=== PATIENT | female | born 1945 | race Caucasian/White ===

== ENCOUNTER 2016-05-29 10:02 | Day surgery (SDC) | payer MEDICARE ==
[~2016-05-29 10:02] MED LIST: Buffered Lidocaine 1% SYR 3ML* 3 ML/SYR SYRINGE INTRADERM ONE
[2016-05-29] MEDS ORDERED: Midazolam* 1 MG/ML 2 ML VIAL (2 MG) ONE (11:08)
[2016-05-29] MEDS ORDERED: Famotidine IV* 10 MG/ML 2 ML (20 mg) ONE (11:08)
[2016-05-29] MEDS ORDERED: fentaNYL* 50 MCG/ML 2 ML VIAL (100 MCG VIAL) ONE ×2 (11:08→12:42)
[2016-05-29] MEDS ORDERED: Dexamethasone IV* 4 MG/ML 1 ML (4 MG) ONE (12:05)
[2016-05-29] MEDS ORDERED: Lidocaine 2% PF * 5 ML VIAL ONE (12:05)
[2016-05-29] MEDS ORDERED: Propofol* 10 MG/ML 20 ML BTL IV PUSH ONE (12:05)
[2016-05-29] MEDS ORDERED: Succinylcholine* 20 MG/ML 10 ML VIAL ONE (12:05)
[2016-05-29] MEDS ORDERED: Ondansetron INJ* 2 MG/ML VIAL ONE (12:05)
[2016-05-29] MEDS ORDERED: Rocuronium* 10 MG/ML VIAL ONE (12:42)
[2016-05-29] MEDS ORDERED: PROCHLORPERAZINE INJ 5 MG/ML 2 ML VIAL IV PRN (14:11)
[2016-05-29] MEDS ORDERED: Ondansetron INJ* 2 MG/ML VIAL IV PRN (14:11)
[2016-05-29] MEDS ORDERED: Acetaminophen TAB* 325 MG PO PRN (14:11)
[2016-05-29 14:30] VITALS: BP 138/63
--- NOTE | 2016-05-30 03:39 | PRO ---
BRONCHOSCOPY REPORT: DATE OF PROCEDURE: 05/29/16 PROCEDURE: Bronchoscopy with endobronchial ultrasound-guided fine needle aspiration of mediastinal and hilar nodes, bronchoalveolar lavage from left upper lobe, endobronchial needle aspiration and endobronchial biopsy from lingular segment of left upper lobe. ANESTHESIA: General anesthesia. The patient intubated with size 8.0 ET tube. ANESTHESIOLOGIST: Dr. Horton. DESCRIPTION OF PROCEDURE: Informed consent was obtained from the patient prior to the procedure after all the risks and benefits were thoroughly explained. The patient was intubated with size 8.0 ET tube. Appropriate time-out was agreed on by attending staff. Flexible bronchoscope was inserted through the ET tube. The ET tube positioning was noted to be 3 cm above the level of dora. Bronchoscope was then inserted to right bronchial tree, which was inspected. No endobronchial lesions were noted. Thick secretions were noted and were suctioned out. Bronchoscope was then inserted into the left bronchial tree, which was then inspected. Thick secretions were noted and were suctioned. The patient noted to have endobronchial lesion in the lingular segment of left upper lobe. There was near complete occlusion of lateral segment of lingular bronchus. Old blood was noted in the area. Bronchoscope was then withdrawn and EBUS bronchoscope was inserted. Station 7 lymph node was scanned and was accessed with three passes. Rapid onsite evaluation revealed normal lymphatic tissue, no malignant cells were seen. Station R4 was accessed with two passes. Normal lymphatic tissue was seen without malignant cells. Station L4 was accessed with three passes. Normal lymphatic tissue was seen with no malignant cells. Station L10 was accessed with four passes. Normal lymphatic tissue was seen. No malignant cells were seen. Rest of the specimen was placed in CytoLyt. Specimen was also placed in RPMI for flow cytometric evaluation. Olympus bronchoscope was then withdrawn and flexible bronchoscope was inserted. Endobronchial needle aspirations were performed in lingular segment of left upper lobe bronchus, smeared on a slide, which revealed malignant cells and necrotic tissue. Rest of the specimen was placed in CytoLyt. Endobronchial biopsies were also obtained from left upper lobe endobronchial lesion. The patient tolerated the procedure well. Minimal bleeding was noted. The patient was extubated and was seen in recovery in optimal condition. Will follow up final results. [id number] #: [id number] [facility]
== END 2016-05-29 15:10 | disposition home or self-care (01) ==
LOC: OR 10:02
PROVIDERS: ATTEND Internal Medicine
DX: C34.12 Malignant neoplasm of upper lobe, left bronchus or lung (principal); F17.210 Nicotine dependence, cigarettes, uncomplicated; J44.9 Chronic obstructive pulmonary disease, unspecified
CPT/HCPCS: 87015; 87070; 87102; 87116; 87205; 87206; 88112; 88172; 88173; 88184; 88185; 88188; 88305; 88341; 88342; J0330; J1100; J2250; J2405; J2704; J3010

== ENCOUNTER 2016-06-27 22:33 | Day surgery (SDC) | payer MEDICARE ==
[2016-06-27] MEDS ORDERED: Ondansetron INJ* 2 MG/ML VIAL IV ONE (22:51)
[2016-06-27] MEDS ORDERED: NS 0.9% 1000 ML* 1,000 ML IV ONE (22:51)
[2016-06-27 23:43] LABS: Hematocrit 39 % (35-47); Hemoglobin 12.4 g/dl (12.0-16.0); Mean Corpuscular HGB Conc 32 g/dl (31-36); Mean Corpuscular Hemoglobin 25 pg (27-31); Mean Corpuscular Volume 78 fL (80-97); Mean Platelet Volume 8 um3 (7.4-10.4); Red Blood Count 5.04 10^6/ul (4.0-5.4); Red Cell Distribution Width 15 % (10.5-15)
--- NOTE | 2016-06-27 23:51 | ED ---
Giorgio Álvarez Erika, scribed for Sukhi Delong MD on 06/27/16 at 2254 . Abdominal Pain/Female - HPI Summary HPI Summary: Patient is a 71-year-old female presenting to the ED with a CC of abdominal pain. She reports that she quit smoking 7 days ago, and is having surgery for a lung tumor removal on 07/02/[address] Carvalho. Patient states she has had decreased appetite the past 3 weeks. Today, pt reports she felt constipated, though states she had a BM today. At 18:00 pt took Sen[place]ot. At 19:30, patient developed abdominal pain, associated with diaphoresis, chills, dizziness, and nausea. Patient has had 2 episodes of vomiting, mostly consisting of dry- heaving. - History of Current Complaint Chief Complaint: EDAbdPain Stated Complaint: ABD PAIN/FEVER Time Seen by Provider: 06/27/16 22:44 Hx Obtained From: Patient, Family/Bottle Tester - Daughter Onset/Duration: Gradual Onset, Lasting Hours, Worse Since - 19:30 Timing: Constant Severity Currently: Moderate Pain Intensity: 9 Pain Scale Used: 0-10 Numeric Alleviating Factor(s): Nothing Associated Signs and Symptoms: Positive: Diaphoresis, Decreased Appetite, Nausea , Vomiting, Other: - Chills, dizziness Allergies/Adverse Reactions: Allergies Allergy/AdvReac Type Severity Reaction Status Date / Time No Known Allergies Allergy Verified 06/27/16 22:38 PMH/Surg Hx/FS Hx/Imm Hx Endocrine/Hematology History: Denies: Hx Diabetes Cardiovascular History: Denies: Hx Hypertension Respiratory History: Reports: Other Respiratory Problems/Disorders - chronic sinus problem Sensory History: Reports: Hx Contacts or Glasses - glasses Denies: Hx Hearing Aid Opthamlomology History: Reports: Hx Contacts or Glasses - glasses Psychiatric History: Reports: Hx Anxiety - on meds - Cancer History Cancer Type, Location and Year: lung - Surgical History Surgery Procedure, Year, and Place: x1 1964. appendectomy 1964 Hx Anesthesia Reactions: No - Immunization History Date of Tetanus Vaccine: unknown Date of Influenza Vaccine: unknown Infectious Disease History: No Infectious Disease History: Denies: Traveled Outside the [place] in Last 30 Days - Family History Known Family History: Positive: Other - Lung CA - Social History Alcohol Use: None Hx Substance Use: No Substance Use Type: Reports: None Hx Tobacco Use: Yes Smoking Status (MU): Light Every Day Tobacco Smoker Review of Systems Positive: Chills, Skin Diaphoresis Gastrointestinal: Other - decreased appetite, constipation Positive: Abdominal Pain, Vomiting, Nausea Neurological: Other - dizziness All Other Systems Reviewed And Are Negative: Yes Physical Exam Triage Information Reviewed: Yes Vital Signs On Initial Exam: Initial Vitals Temp Pulse Resp BP Pulse Ox 96.9 F 61 18 143/48 100 06/27/16 22:36 06/27/16 22:36 06/27/16 22:36 06/27/16 22:36 06/27/16 22:36 Vital Signs Reviewed: Yes Appearance: Positive: Well-Appearing, Pain Distress - mild discomfort Skin: Positive: Warm Head/Face: Positive: Normal Head/Face Inspection Eyes: Positive: AGGIE ENT: Positive: Hearing grossly normal Neck: Positive: Supple Respiratory/Lung Sounds: Positive: Clear to Auscultation, Breath Sounds Present Cardiovascular: Positive: RRR Abdomen Description: Positive: Soft, Other: - mild diffuse abd tenderness. Negative: Guarding Bowel Sounds: Positive: Present Musculoskeletal: Positive: Strength/ROM Intact Neurological: Positive: Sensory/Motor Intact Psychiatric: Positive: Affect/Mood Appropriate Diagnostics - Vital Signs Vital Signs Temp Pulse Resp BP Pulse Ox 06/27/16 22:36 96.9 F 61 18 143/48 100 - Laboratory Lab Results: Lab Results 06/27/16 Range/Units 23:20 WBC 16.0 H (3.5-10.8) 10^3/ul RBC 5.04 (4.0-5.4) 10^6/ul Hgb 12.4 (12.0-16.0) g/dl Hct 39 (35-47) % MCV 78 L (80-97) fL MCH 25 L (27-31) pg MCHC 32 (31-36) g/dl RDW 15 (10.5-15) % Plt Count 396 (150-450) 10^3/ul MPV 8 (7.4-10.4) um3 Neut % (Auto) 87.9 H (38-83) % Lymph % (Auto) 7.1 L (25-47) % [place] % (Auto) 4.2 (1-9) % Eos % (Auto) 0.1 (0-6) % Baso % (Auto) 0.7 (0-2) % Absolute Neuts (auto) 14.1 H (1.5-7.7) 10^3/ul Absolute Lymphs (auto) 1.1 (1.0-4.8) 10^3/ul Absolute Monos (auto) 0.7 (0-0.8) 10^3/ul Absolute Eos (auto) 0 (0-0.6) 10^3/ul Absolute Basos (auto) 0.1 (0-0.2) 10^3/ul Absolute Nucleated RBC 0.01 10^3/ul Nucleated RBC % 0 Result Diagrams: 06/27/16 23:20 06/27/16 23:20 Lab Statement: Any lab studies that have been ordered have been reviewed, and results considered in the medical decision making process. - Radiology CXR Radiology Interpretation Completed By: ED Physician - Mass left mid lung field - CT CT A/P W/ CT Interpretation Completed By: Radiologist - Imaging last ironer - Moderate right hydronephrosis and perinephric inflammation with a 5 mm distal ureteral density , possibly a stone, although blood clot or R mass also considered. Sigmoid diverticulosis. - Ultrasound No standard instances Ultrasound Interpretation Completed By: Radiologist - US Renal - Mild/moderate right hydronephrosis secondary to a 9 mm distal UVJ stone Re-Evaluation - Re-Evaluation First Eval Re-Evaluation Time: 06:23 Comment: Updated patient on all results and plan of care Second Eval Comment: d/w dr steward, d/w dr you Abdominal Pain Fem Course/Dx - Course Course Of Treatment: A 71 y/o F presents to the ED with a CC of abdominal pain. Associated symptoms include diaphoresis, chills, dizziness, and nausea. Renal US shows mild/moderate right hydronephrosis secondary to a [address] stone[address] Steward consulted, who recommends admission to the hospitalist. Dr. Steward will stent patient. Patient admitted to Dr. You. - Diagnoses Provider Diagnoses: Hydronephrosis determined by ultrasound - Provider Notifications Discussed Care Of Patient With: Dr. Steward (urologist) at 04:59 - recommends ultrasound. Dr. Steward at 06:23 - recommends admission. will stent. Dr. You (hospitalist) at 06:29 - agrees to admit Instructed by Provider To: Admit As Inpatient - Critical Care Time Critical Care Time: 30-74 min Discharge - Discharge Plan Condition: Stable Disposition: ADMITTED TO [facility] Referrals: Dre Sahu MD [Primary Care Provider] - The documentation as recorded by the Giorgio simpson Erika accurately reflects the service I personally performed and the decisions made by me, Sukhi Delong MD.
[2016-06-27 23:54] LABS: Albumin 3.6 g/dL (3.2-5.2); BUN/Creatinine Ratio 21.1 (8-20); C Reactive Protein 66.57 mg/L (< 5.00); Calcium 9.4 mg/dL (8.6-10.3); EGFR African American 95.9 (>60); EGFR Non-African American 74.6 (>60); Globulin 3.1 g/dL (2-4); Potassium 3.8 mmol/L (3.5-5.0); Total Bilirubin 0.4 mg/dL (0.2-1.0); Total Protein 6.7 g/dL (6.4-8.9)
[2016-06-27] MEDS ORDERED: Morphine INJ* 2 MG/ML 1 ML SYRINGE IV ONE (23:54)
[2016-06-28] MEDS ORDERED: Iohexol 300* (CONTRAST) 10 ML SDV IV ONE (01:02)
[2016-06-28] MEDS ORDERED: Morphine INJ* 2 MG/ML 1 ML SYRINGE IV ONE (04:51)
[2016-06-28] MEDS ORDERED: Morphine INJ* 2 MG/ML 1 ML SYRINGE ONE (04:52)
[2016-06-28 05:34] LABS: Urine Bacteria Absent (Absent); Urine Bilirubin Negative (Negative); Urine Glucose Negative (Negative); Urine Nitrite Negative (Negative)
[2016-06-28] MEDS ORDERED: cefTRIAXone(*) 2 GM ADDV.VIAL IVPB ONE (06:37)
[2016-06-28] MEDS ORDERED: NS 0.9% 1000 ML* 1,000 ML IV SCH (08:15)
--- NOTE | 2016-06-28 08:15 | RAD ---
INDICATION: Abdominal pain, history of lung cancer. COMPARISON: Comparison is made with a prior PET/CT study from June 05, 2016. TECHNIQUE: A CT scan of the abdomen and pelvis was performed with intravenous and oral contrast following intravenous injection of 91 ml of Omnipaque 300 nonionic contrast. Contiguous axial sections were obtained from the lung bases through the symphysis pubis. Images were reconstructed in the coronal and sagittal planes. FINDINGS: The lung bases are clear. No pleural effusion is present. The liver and spleen are within normal limits in size without significant focal abnormality. No calcified gallstones are seen. The pancreas appears to be within normal limits in size. The adrenal glands appear to be within normal limits. The left kidney appears normal. There is enlargement of the right kidney with perinephric stranding. There is dilatation of the right renal calyces pelvis and ureter to the level of the bladder. In that region there is a hyperdense area measuring 6 x 5 mm in size possibly representing a noncalcified calculus, mass or clot. The urinary bladder otherwise appears unremarkable. No renal calculi are seen. The aorta is normal in caliber with moderate calcific plaque present. No significant enlarged retroperitoneal lymph nodes are seen. The stomach, small and large bowel appear nondistended. There is a large duodenal diverticulum measuring 4.3 x 3.2 cm in size. The patient is status post appendectomy by history. There is mild sigmoid diverticulosis and mild thickening of the wall of the sigmoid colon which is unchanged from the prior PET/CT study. The uterus is anteverted and normal in size. No free intraperitoneal air or fluid is seen. No significant focal osseous abnormality is seen. IMPRESSION: MODERATE RIGHT HYDRONEPHROSIS SECONDARY TO A 6 MM DISTAL URETERAL DENSITY, DIFFERENTIAL DIAGNOSIS WOULD INCLUDE A CALCULUS, BLOOD CLOT OR MASS.
--- NOTE | 2016-06-28 08:17 | RAD ---
INDICATION: Shortness of breath, history of lung carcinoma. COMPARISON: Comparison is made with a prior chest x-ray study from [facility] 2016. TECHNIQUE: Dual-energy PA and lateral views of the chest were obtained. FINDINGS: The heart is within normal limits in size. Mediastinal and hilar contours appear within normal limits. There is a large mass present in the left upper lobe measuring 7.0 x 8.0 cm in size. This has increased in size in previously measured 6.7 x 5.6 cm in size. The lungs are hyperinflated and otherwise clear. No pleural effusion is seen. IMPRESSION: LARGE LEFT UPPER LOBE MASS, INCREASED IN SIZE.
[2016-06-28] MEDS ORDERED: ALPRAZolam TAB* 0.25 MG PO PRN (08:31)
[2016-06-28] MEDS ORDERED: Morphine INJ* 2 MG/ML 1 ML SYRINGE IV PRN (08:33)
[2016-06-28] MEDS ORDERED: LORazepam INJ* 2 MG/ML 1 ML VIAL IV PUSH PRN (08:33)
[2016-06-28] MEDS ORDERED: Ondansetron INJ* 2 MG/ML VIAL IV PRN (08:35)
--- NOTE | 2016-06-28 08:36 | RAD ---
INDICATION: Right renal colic. COMPARISON: Comparison is made with a prior CT of the abdomen and pelvis from June 28, 2016. TECHNIQUE: Multiple real-time images of the right kidney were obtained. FINDINGS: The right kidney is slightly enlarged measuring 11.4 x 6.3 x 5.6 cm. There is a small amount of fluid present adjacent to the kidney in the perinephric space. There is moderate distention of the renal calyces and pelvis. There is a focal area of increased echogenicity present at the right ureterovesical junction measuring 9 x 4 mm in size most suspicious for ureteral calculus. There is a diminished right ureteral vesicle jet. The left ureteral vesicle jet appears to be within normal limits. IMPRESSION: MODERATE RIGHT HYDRONEPHROSIS SECONDARY TO OBSTRUCTION AT THE RIGHT URETEROVESICAL JUNCTION. AT THAT LOCATION THERE IS A FOCAL AREA OF INCREASED ECHOGENICITY. THE IMAGING CHARACTERISTICS WOULD FAVOR A CALCULUS OVER A CLOT OR MASS NOTED ON THE PRIOR CT STUDY.
[2016-06-28] MEDS ORDERED: Iohexol 180 (CONTRAST) 10 ML SDV IV ONE (09:22)
[2016-06-28] MEDS ORDERED: fentaNYL* 50 MCG/ML 2 ML VIAL (100 MCG VIAL) ONE (10:24)
[2016-06-28] MEDS ORDERED: Lidocaine 2% PF* 5 ML VIAL ONE (10:24)
[2016-06-28] MEDS ORDERED: Propofol* 10 MG/ML 20 ML BTL IV PUSH ONE (10:24)
[2016-06-28] MEDS ORDERED: EPHEDrine (Pressors)* 50 MG/ML VIAL ONE (10:44)
--- NOTE | 2016-06-28 11:22 | HP ---
HISTORY AND PHYSICAL: DATE OF ADMISSION: 06/28/16 PROVIDER: Jayson Osborne NP ATTENDING PHYSICIAN: Dr. Stanford *(report dictated by Jayson Osborne NP) PRIMARY CARE PROVIDER: Dr. Sahu. GENERAL SURGEON: Following for left upper lobe cancer, Dr. Carvalho. DONOR PROCESSOR: Dr. Ramirez. ONCOLOGIST: Dr. Padilla. CHIEF COMPLAINT: Abdominal pain, nausea, vomiting, chills. HISTORY OF PRESENT ILLNESS: Ms. Lauren is a 71-year-old female with a past medical history of long-term tobacco abuse, anxiety, and recent diagnosis of left upper lobe adenocarcinoma who presented to emergency department last evening for complaint of abdominal pain with nausea, vomiting, and chills starting last evening, found to have a 9 mm distal UVJ stone. Ms. Lauren reports that she quit smoking approximately 1 week ago and has intermittently felt like she was constipated over the past week, but having daily bowel movements. She reports last evening around 6 p.m., she took a senna. At approximately 7:30, she developed lower abdominal pain that she reports as sharp and cramping. She then developed nausea, vomiting, chills, and diaphoresis. Reported she vomited 4 times, accompanied with the abdominal pain. She called her daughter who brought her to the emergency department for further evaluation. On evaluation in the emergency department, the patient was found to have a CRP of 66, leukocytosis of 16. She currently denies any further abdominal pain, nausea, or vomiting since last evening. The patient denies dysuria or urgency, but reports increased frequency in the emergency department. Ms. Lauren reports that she has a scheduled left thoracotomy with left upper lobe lobectomy on , 07/02/[address] Carvalho. PAST MEDICAL HISTORY: 1. Anxiety. 2. Depression. 3. Recent diagnosis of left upper lobe adenocarcinoma. 4. Long-term history of tobacco abuse, 50+ years, recently quitting 1 week ago. HOME MEDICATIONS: 1. Citalopram 20 mg p.o. daily. 2. Xanax 0.25 mg p.o. t.i.d. p.r.n. anxiety. The patient reports she rarely takes this. ALLERGIES: No known allergies. FAMILY HISTORY: Sister has a history of lung cancer who of this disease. SOCIAL HISTORY: The patient reports 50+ years of smoking history, smoking half a pack of cigarettes a day. Denies alcohol use. 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 His number is . REVIEW OF SYSTEMS: A 14-point review of systems was performed. All the pertinent positives and negatives are mentioned in the history of present illness. All the remaining systems are negative. PHYSICAL EXAMINATION GENERAL APPEARANCE: Alert and oriented, a 71-year-old female, sitting up on the emergency department stretcher, in no acute distress, good historian. VITAL SIGNS: Temperature 96.9, heart rate 68, respirations 18, O2 sat 94% on room air, blood pressure 130/73. HEENT: Head is normocephalic, atraumatic. Pupils are equal and reactive to light. Oropharynx is clear. Dry mucous membranes. NECK: Supple. No cervical or supraclavicular lymphadenopathy. CARDIAC: S1, S2. Regular rate and rhythm. No murmurs, rubs, or gallops appreciated. No lower extremity edema. RESPIRATORY: Lungs are clear to auscultation bilaterally. Good aeration throughout. No rhonchi, wheezes, rales noted. ABDOMEN: Soft, nondistended, mild tenderness to right lower quad. No guarding. Normal bowel sounds x4. Mild right CVA tenderness. EXTREMITIES: Full range of motion in all extremities. Strength is 5/5 throughout. No edema or cyanosis noted. NEUROLOGICAL: Grossly intact. PSYCH: Alert and oriented x3. Appropriate to situation. No anxiety noted. LABORATORY DATA AND DIAGNOSTIC STUDIES: WBC 16.0, RBC 5.04, HGB 12.4, HCT 39, MCV 78, MCH 25, MCHC 32, RDW 15, platelet count 396. Sodium 134, potassium 3.8 , chloride 101, carbon dioxide 23, anion gap 10, BUN 16, creatinine 0.76, glucose 154. Lactic acid 1.5. Calcium 9.4, magnesium 2.0, total bilirubin 0.40 , AST 8, ALT 5, alkaline phosphatase 105. C-reactive protein 66.54. Total protein 6.7, albumin 3.6. Lipase 24. Urinalysis; specific gravity 1.048, 1+ blood, rbc 3+. Abdomen and pelvis CT, impression: Moderate right hydronephrosis secondary to a 6 mm distal ureteral density, differential diagnosis would include calculus, blood clot, or mass. Renal ultrasound; mild/moderate right hydronephrosis secondary to a 9 mm distal UVJ stone. ASSESSMENT AND PLAN: Ms. Lauren is a 71-year-old female with a past medical history of long-term history of tobacco abuse, recently diagnosed with a left upper lobe adenocarcinoma and history of anxiety/depression who presents to the emergency department last evening for acute onset of lower abdominal pain, nausea, vomiting, chills, diaphoresis, found to have a right hydronephrosis, looks likely secondary to a distal UVJ stone 9 mm per ultrasound. 1. Abdominal pain. Plan is to admit this patient and urologist, Dr. Steward will take the patient to the OR for a stent placement. The patient was given 1 dose of ceftriaxone in the emergency department. Currently, she is having no pain and feels much better. It is possible the patient could go home this afternoon or in the morning. Disposition per urologist. 2. Anxiety/depression. Continue Celexa and Xanax p.r.n. 3. Recent diagnosis of left upper lobe adenocarcinoma. Plan is for the patient to have a scheduled left thoracotomy and left upper lobe lobectomy with Dr. Carvalho on 07/02/16. The patient was instructed to contact Dr. Carvalho to make him aware of this hospitalization as well as records will copied to him. 4. DVT prophylaxis. SCDs. Encourage ambulation. I will start heparin subcu if the patient remains overnight. 5. Code status, full code. The patient's is the healthcare proxy. TIME SPENT: Approximately 60 minutes were spent on this admission. JAYSON OSBORNE NP CC: Dr. Sauh; Dr. Carvalho* [id number]/[facility] #: [id number] DI[facility]
--- NOTE | 2016-06-28 11:32 | RAD ---
INDICATION: Right hydronephrosis, stent placement. COMPARISON: Comparison is made with a prior CT of the abdomen and pelvis and renal ultrasound obtained earlier today. TECHNIQUE: 7 seconds of intermittent fluoroscopic guidance were provided and 7 spot films of the abdomen were centered on the right side. FINDINGS: There is partial opacification of the right renal collecting system. There is dilatation of the ureter renal pelvis and calyces consistent with hydronephrosis. Subsequently there is placement of a double-J stent catheter on the right side which demonstrates normal course. IMPRESSION: INTRAOPERATIVE CONTROL FILMS. CPT II Codes: 6045F
[2016-06-28] MEDS ORDERED: Solifenacin(NF) 5 MG TAB PO ONE (12:00)
[2016-06-28 12:17] VITALS: BP 124/54
--- NOTE | 2016-06-28 12:22 | CONS ---
UROLOGY CONSULTATION: DATE OF CONSULT: 06/28/16 AGE: 71 years, female. REQUESTING PHYSICIAN: Dr. Sukhi Delong. DIAGNOSIS: Right hydronephrosis. SECONDARY DIAGNOSIS: Probable calculus right distal ureter. PLANNED PROCEDURE: Right ureteroscopy, possible laser and stent insertion. HISTORY OF PRESENT ILLNESS: Pebbles Lauren is a 71-year-old lady who presented to the emergency room with abdominal pain, nausea and vomiting. The pain is predominantly on the right side and her initial presentation was not typical of ureteral colic. So, a CAT scan was done with oral and intravenous contrast. This revealed moderate right hydronephrosis and hydroureter with a possible calculus in the right distal ureter close to the bladder. Ultrasound was then obtained later on which revealed persistent obstruction on the right side with what is being described as a likely 9 mm calculus of the right ureterovesical junction (the CT scan was indeterminate because it was done with intravenous contrast which can often obscure a calculus). PAST MEDICAL HISTORY: Significant for: 1. Recently diagnosed left lung cancer for which she is scheduled for surgical resection in the next week. 2. Anxiety, depression. MEDICATIONS ON ADMISSION: 1. Citalopram 20 mg daily. 2. Xanax p.r.n. ALLERGIES: No known drug allergies. REVIEW OF SYSTEMS: She is otherwise in good health. She denies any chest pain or shortness of breath. There is no history of diabetes mellitus or any other major systemic illness. PHYSICAL EXAM: Reveals a pleasant, anxious, elderly lady who is in mild-to- moderate discomfort. Blood pressure is 143/52, pulse 68 per minute, temperature 96.9, oxygen saturation 100%. Cardiovascular Exam: Regular rate and rhythm. S1, S2. Lungs are clear bilaterally. Abdomen is soft with mild right flank and right lower quadrant tenderness. DIAGNOSTIC STUDIES/LAB DATA: Review of labs reveals a white count of 16.0. Hemoglobin and hematocrit are normal at 12.4 and 39. BUN and creatinine are normal at 16 and 0.76. Urinalysis shows 1+ blood with absent bacteria. ASSESSMENT/PLAN: I reviewed the CT and ultrasound and had a detailed discussion with Mrs. Lauren. I also explained to her that there is a small possibility that this is a noncalculus etiology for her pain and hydronephrosis and in any case because of the ongoing pain and hydronephrosis, the plan is to proceed with right ureteroscopy. If this is the calculus, then the next step would be a laser lithotripsy and stone removal and stent insertion. I discussed the procedure in detail with Mrs. Lauren. CC: Dr. Dre Sahu; Dr. Sukhi Carvalho; Dr. Ramirez; eD Steward MD * [id number]/[facility] #: [id number] MTDD
--- NOTE | 2016-06-29 07:33 | OP ---
DATE OF OPERATION: 06/28/16 - [facility] DATE OF : [birth year] - AGE: 71 years, female. SURGEON: De Steward MD ANESTHESIOLOGIST: Dr. Taran Donald. ANESTHESIA: General. PRE-OP DIAGNOSES: 1. Right hydronephrosis. 2. Calculus, right distal ureter. POST-OP DIAGNOSES: 1. Right hydronephrosis. 2. Calculus, right distal ureter. OPERATIVE PROCEDURE: Cystoscopy, right retrograde pyelogram, right ureteroscopy and stone extraction, and right stent insertion. COMPLICATIONS: None. STENT USED: 6-Swedish stent, right ureter. INDICATIONS: Pebbles Lauren is a 71-year-old lady who was evaluated for right- sided abdominal pain, nausea and vomiting, and noted to have an obstructing calculus in the right distal ureter. OPERATIVE FINDINGS: Calculus, right distal ureter causing right hydronephrosis and hydroureter. POSTOPERATIVE CONDITION: Stable. DESCRIPTION OF PROCEDURE: After induction of general anesthesia, the patient was placed in dorsal lithotomy position. Sequential compression devices were in place and functioning. Initial cystoscopy revealed a normal-appearing bladder with some mild edema and inflammation surrounding the right orifice. A guidewire was introduced and retrograde pyelogram performed on the right side. This revealed hydronephrosis with proximal hydroureter and there was still some of the contrast from the previous CT scan present. A 6-Swedish semirigid ureteroscope was introduced and advanced under direct vision. In the distal ureter just above the ureterovesical junction, there was a long thin, about 9 x 4 to 5 mm calculus with some surrounding edema and inflammation. This was engaged using a 3-pronged grasper and removed. It had the visual appearance of a calculus, but . The ureteroscope was advanced into the proximal ureter to make sure there were no additional calculi and none were noted. On initial cystoscopy, I had noted a mild- to-moderate degree of urethral stenosis and a Rashid catheter was placed for temporary bladder drainage. The patient tolerated the procedure satisfactorily and after successful placement of a 6- Swedish stent under fluoroscopic monitoring, was transferred back to recovery area in stable condition. CC: Dr. Dre Sahu; Dr. Sukhi Carvalho; Dr. Ramirez; Dr. De Steward.* [id number]/[facility] #: [id number] MTDD
--- NOTE | 2016-06-29 08:32 | DS ---
DISCHARGE SUMMARY: DATE OF ADMISSION: 06/28/16 DATE OF DISCHARGE: 06/28/16 PROVIDER: Jayson Osborne NP ATTENDING PHYSICIAN: Dr. Stanford *(as dictated by Jayson Osborne NP) PRIMARY CARE PROVIDER: Dr. Dre Sahu WIND TURBINE BLADE REPAIR TECHNICIAN: Dr. Ramirez. ONCOLOGIST: Dr. Padilla. GENERAL SURGEON: Following for left upper lobe carcinoma, Dr. Carvalho. CONSULTING UROLOGIST: Dr. Steward. DISCHARGE DIAGNOSIS: Moderate right hydronephrosis secondary to obstruction at the UVJ with a 9 mm stone, now status post ureteral stent placement. HISTORY OF PRESENT ILLNESS AND HOSPITAL COURSE: Please see history and physical by this author for full admission details, but in summary, this is a 71 -year-old female who presented to the emergency department last evening with complaint of acute onset of abdominal pain, nausea, vomiting, and chills, who came to the emergency department, found to have a 9 mm distal UVJ stone causing obstruction and moderate right hydronephrosis. She was taken to the OR by urologist, Dr. Steward, today in which a ureteral stent was placed. The patient received IV ceftriaxone and gentamicin per Urology. The patient's urinalysis did not appear infected. She did present with a leukocytosis of 16K. She was then afebrile throughout the hospitalization. She does not meet sepsis criteria. Per urologist, Dr. Steward, he reports that the patient was switched over to same- day surgery and he has provided the patient with the discharge instructions. I evaluated the patient in the PACU setting. The patient was alert and oriented x3, reporting that she continues to feel much better. Her is at the bedside and will be driving her home. From a medical standpoint, the patient can be discharged to home. Dr. Steward, as stated above, has given the patient discharge instructions. I have sent the patient in some pain medication as requested by Urology. The patient will call the office tomorrow for an appointment for followup. DISCHARGE PLAN: 1. Discharged to home. 2. The patient is instructed to call Dr. Steward's office tomorrow for a followup appointment. 3. As stated above, the patient received 2 doses of IV antibiotics and does not require further antibiotic treatment as her urinalysis did not appear to be "infected." 4. The patient was instructed to return to the emergency department for any concerning or worsening symptoms. TIME SPENT: Approximately 30 minutes was spent on this discharge. JAYSON OSBORNE NP CC: Dr. Dre Sahu* [id number]/[facility] #: [id number] DIYA
[2016-06-29] MEDS ORDERED: Citalopram TAB* 10 MG PO SCH (09:00)
== END 2016-06-28 09:52 | disposition home or self-care (01) ==
LOC: ED 22:33 → OR 06-28 09:52
PROVIDERS: ATTEND Urology
DX: N13.2 Hydronephrosis with renal and ureteral calculous obstruction (principal); C34.92 Malignant neoplasm of unspecified part of left bronchus or lung; F41.8 Other specified anxiety disorders; Z87.891 Personal history of nicotine dependence
CPT/HCPCS: 36415; 71020; 74177; 74420; 76775; 80053; 81003; 81015; 82365; 83605; 83690; 83735; 85025; 86140; 86850; 86870; 86880; 86900; 86901; 86905; 86922; 88300; 93005; 96374; 96375; 99282; C1876; J0696; J1580; J2270; J2405; J2704; J3010; Q9967

== ENCOUNTER 2016-07-02 07:28 | Inpatient (IN) | payer MEDICARE ==
--- NOTE | 2016-06-17 21:45 | HP ---
ADMISSION HISTORY AND PHYSICAL: DATE OF ADMISSION: 07/02/16 ATTENDING SURGEON: Dr. Sukhi Carvalho (dictated by TOMMY Drummond). CHIEF COMPLAINT: Left upper lobe lung cancer. HISTORY OF PRESENT ILLNESS: This is a 71-year-old female smoker who first noted what sounds like pleuritic left-sided chest pains late last year for which she was treated with a course of antibiotics with improvement. Her symptoms recurred and she was sent for chest x-ray, which showed a density in the left upper lobe. She was treated with other course of antibiotics again with improvement. CT scan on 05/21/16 showed a large left upper lobe mass (up to 6 cm) with some mediastinal and perihilar lymph node enlargement. Eventually , she underwent bronchoscopy with Dr. Ramirez on 05/29/16, which was notable for a lesion in the lingular segment of left upper lobe, which was biopsy positive for adenocarcinoma. Selective transbronchial lymph node biopsies were all negative. PET scan from 06/05/16 did show increased uptake in the left upper lobe lesions with an SUV of 9.6. There was noted to be moderate enlargement of mediastinal lymph nodes, the largest being in the AP window measuring 1.4 cm with an SUV of 4.1. There were also prominent left hilar nodes measuring up to SUV of 3.3. The patient has been seen by Dr. Padilla and was referred for surgical evaluation with Dr. Carvalho who saw the patient yesterday on 06/16/16. The patient also had an EKG done this morning at [facility], which showed some abnormalities and after discussion with Dr. Carvalho, she will be sent for Cardiology evaluation and that appointment is pending. The patient understands the indications for surgery, the risks, benefits, and alternatives as well as the expected perioperative course including immediate postoperative admission to ICU. She would like to proceed as scheduled with left thoracotomy with left upper lobe lobectomy. PFTs have been already performed and she was deemed an appropriate candidate for lobectomy. CT scan of the brain was also recently performed and that report is still pending. She has a followup with Dr. Padilla tomorrow. PAST MEDICAL HISTORY: (She does not see a medical professional on a regular basis). She is treated for anxiety and depression. She has otherwise not had any known history of cardiovascular disease, hypertension, diabetes, bleeding or clotting disorders. PAST SURGICAL HISTORY: Her only previous surgery is a with incidental appendectomy. CURRENT MEDICATIONS: 1. Citalopram 20 mg once daily. 2. Alprazolam 0.25 mg up to t.i.d. p.r.n. anxiety (she has only taken this once this morning). 3. She is also recommended for nicotine replacement therapy which she has and is considering, but has not yet initiated. She does not use any other [id number] products or supplements. DRUG ALLERGIES: None known. FAMILY HISTORY: Positive for lung cancer in her sister, who of the disease. There was also some question of asbestos exposure in her sister's case. There is no known family history of anesthesia problems, bleeding, or clotting disorders. SOCIAL HISTORY: The patient is . She is accompanied today by her daughter. She is a retired gentile. She currently smokes 3 cigarettes per day, down from 9 to 10 per day in recent months, but with an overall [id number] history. She denies use of alcohol or other recreational drugs. REVIEW OF SYSTEMS: General: No other recent acute illnesses other than described in the HPI. She has lost approximately 5 pounds in recent months which she attributes to the stress of the various tests and her diagnosis. Cardiovascular: She related left-sided chest pain at the onset of the present illness though it does sound as though that was primarily pleuritic in nature. There is no history of hypertension, heart murmur, or palpitations. Respiratory : No history of asthma. Long-term smoker as noted above. She does have regular sputum production, but denies hemoptysis. GI: No problems reported. She has never undergone colonoscopy. : No problems reported. GAME ADVISOR: She has not had routine breast exams, mammograms, or pelvic exams in recent years, but no problems reported. Endocrine: No diabetes or thyroid dysfunction. Neuropsych: History of anxiety and depression and tobacco use disorder as noted above. PHYSICAL EXAMINATION GENERAL: Well-nourished, somewhat anxious female, in no acute distress. VITAL SIGNS: Height 5 feet 6 inches, weight 145 pounds by history. Other vital signs per nursing. HEENT: Pupils equal and round, reactive. EOMs intact. No conjunctival pallor. Oropharynx: She has full upper and partial lower dentures. Remaining teeth in good repair. No intraoral lesions. NECK: No cervical or supraclavicular lymphadenopathy. No thyromegaly or masses. LUNGS: Decreased breath sounds throughout. Specifically, no wheezes or rales. HEART: Regular rate and rhythm. No murmur appreciated. BREASTS: Not examined. ABDOMEN: Soft, nontender to palpation. No palpable masses or organomegaly. Well- healed lower midline incision. EXTREMITIES: No edema. GENITALIA AND RECTAL: Not done. BACK: No spinous process or CVA tenderness. NEUROLOGICAL: Grossly intact. Somewhat anxious. SKIN: Warm and dry. No suspicious rashes or lesions. IMPRESSION: Left upper lobe lung cancer. PLAN: Thoracotomy with left upper lobectomy. Cardiology evaluation preoperatively is pending. TOMMY FIGUEROA CC: Dr. Sahu, [facility]; Dr. Padilla; Dr. Ramirez; [facility] * [id number]/CPS #: [id number] [facility]
[~2016-07-02 07:28] MED LIST changes: -Buffered Lidocaine 1% SYR 3ML* 3 ML/SYR SYRINGE INTRADERM ONE; +Buffered Lidocaine 1% SYRIN* 3 ML/SYR SYRINGE INTRADERM ONE; +Famotidine IV* 10 MG/ML 2 ML (20 mg) IV ONE; +Famotidine IV* 10 MG/ML 2 ML (20 mg) ONE; +HYDROcodone/ACETAMIN 5-325 MG* 1 TAB PO PRN; +Heparin VIAL(*) 5000 UNITS/ML VIAL (FIVE THOUSAND) ONE; +PROCHLORPERAZINE INJ 5 MG/ML 2 ML VIAL IV PRN; +ceFAZolin 2 GM PREMIX(*) 2 GM/50 ML BAG IVPB ONE; +fentaNYL* 50 MCG/ML 2 ML VIAL (100 MCG VIAL) IV PRN
[2016-07-02] MEDS ORDERED: KETAMINE HCL* 50 MG/ML 10 ML VIAL ONE (08:12)
[2016-07-02] MEDS ORDERED: fentaNYL* 50 MCG/ML 5 ML VIAL (250 MCG VIAL) ONE (08:12)
[2016-07-02] MEDS ORDERED: Midazolam* 1 MG/ML 5 ML VIAL (5 MG) ONE (08:12)
[2016-07-02] MEDS ORDERED: Rocuronium* 10 MG/ML VIAL ONE (08:12)
[2016-07-02] MEDS ORDERED: Dexamethasone IV* 4 MG/ML 1 ML (4 MG) ONE (12:19)
[2016-07-02] MEDS ORDERED: Ondansetron INJ* 2 MG/ML VIAL ONE (12:19)
[2016-07-02] MEDS ORDERED: DiMENhydriNATE IV* 50 MG/ML VIAL ONE (12:19)
[2016-07-02] MEDS ORDERED: Propofol* 10 MG/ML 20 ML BTL IV PUSH ONE (12:19)
[2016-07-02] MEDS ORDERED: Lidocaine 2% PF* 5 ML VIAL ONE (12:19)
[2016-07-02] MEDS ORDERED: Ketorolac INJ* 30 MG/ML 1 ML VIAL ONE (12:20)
[2016-07-02] MEDS ORDERED: fentaNYL* 50 MCG/ML 2 ML VIAL (100 MCG VIAL) ONE (12:43)
[2016-07-02] MEDS ORDERED: DiMENhydriNATE IV* 50 MG/ML VIAL IV PUSH PRN (12:50)
[2016-07-02] MEDS ORDERED: Acetaminophen IV 1GM/100ML * 100 ML IVPB ONE (12:50)
[2016-07-02] MEDS ORDERED: diPHENhydraMINE IV* 50 MG/ML 1 ml VIAL (BENADRYL) IV PRN (12:50)
[2016-07-02] MEDS ORDERED: Levalbuterol 0.63MG/3ML NEB INH PRN (12:50)
[2016-07-02] MEDS ORDERED: Bupivacaine 0.25% EPI 200,000* 30 ML SDV ONE (13:42)
[2016-07-02] MEDS ORDERED: Acetaminophen TAB* 325 MG PO PRN (14:07)
[2016-07-02] MEDS ORDERED: Ondansetron INJ* 2 MG/ML VIAL IV PRN (14:07)
[2016-07-02] MEDS ORDERED: Acetaminophen IV 1GM/100ML * 100 ML ONE (14:15)
[2016-07-02] MEDS ORDERED: HYDROmorphone* 1 MG/ML 1 ML SYR ONE (14:15)
[2016-07-02] MEDS: HYDROmorphone* 1 MG/ML 1 ML SYR IV PRN ×5 (14:36→15:29)
[2016-07-02] MEDS ORDERED: EPHEDrine (Pressors)* 50 MG/ML VIAL IV PUSH PRN (14:36)
[2016-07-02] MEDS ORDERED: oxyCODONE TAB* 5 MG TAB PO PRN (14:36)
[2016-07-02] MEDS ORDERED: Lactated Ringers 500 ml BAG* 500 ML IV PRN (14:36)
[2016-07-02] MEDS ORDERED: Nalbuphine* 20 MG/ML 1 ML VIAL IV PRN (14:36)
[2016-07-02] MEDS ORDERED: Morphine PF AMP (0.5MG/ML)* 5 MG/10 ML AMP ONE (15:14)
--- NOTE | 2016-07-02 15:16 | RAD ---
Indication: Left upper lobectomy. Left lung mass. Single frontal view of the chest performed at 1445 hours was reviewed. Comparison is made with previous exam dated June 28, 2016. Presumed resection of left upper lobe mass with left chest tube in place. There is some atelectasis and/or infiltrate in the right upper lobe in the paramediastinal area. IMPRESSION: POSTOPERATIVE CHANGES WITH LEFT CHEST TUBE IN PLACE. ATELECTASIS OR INFILTRATE IN THE RIGHT PARATRACHEAL REGION OF THE RIGHT UPPER LOBE.
[2016-07-02] MEDS ORDERED: HYDROmorphone PCA* 20 MG/20 ML PCA.SYRING ONE (16:11)
[2016-07-02] MEDS: HYDROmorphone PCA* 20 MG/20 ML PCA.SYRING PCA SCH (16:21)
[2016-07-02] MEDS: Ropivacaine* 300 MG in NS 0.9% 250 ML* 240 ML EPIDURAL SCH (16:37)
[2016-07-02] MEDS: Ketorolac INJ* 15 MG/ML 1 ML VIAL IV PUSH PRN (17:51)
[2016-07-02] MEDS: Docusate CAP* 100 MG PO SCH (21:00)
[2016-07-02] MEDS: Heparin VIAL(*) 5000 UNITS/ML VIAL (FIVE THOUSAND) SUBCUT SCH (21:02)
--- NOTE | 2016-07-02 23:28 | CONS ---
CONSULTATION REPORT: DATE OF CONSULT: 07/02/16 PROVIDER: Jayson Osborne NP ATTENDING PHYSICIAN: Dr. Dean (report dictated by Jayson Osborne NP). REFERRING PHYSICIAN/SURGEON: Dr. Carvalho. PRIMARY CARE PROVIDER: Dr. Sahu. SECURITY INCIDENT HANDLER: Dr. Ramirez. ONCOLOGIST: Dr. Padilla. CONSULTATION REASON: Co-medical management, status post left thoracotomy with left upper lobe lobectomy. HISTORY OF PRESENT ILLNESS: Ms. Lauren is a 71-year-old female with a past medical history of long-term tobacco abuse, recent diagnosis of left upper lobe adenocarcinoma, recent hospitalization for abdominal pain, found to have a 9-mm distal UVJ stone in which Dr. Steward, urologist, placed a stent and the patient was discharged the same day. Today, the patient underwent this elective procedure with Dr. Cravalho and was admitted to the ICU postoperatively. She was seen and evaluated at the bedside in the ICU. She appears to be resting, lethargic, but opens eyes to voices, alert and oriented x3. She has a chest tube placed in her left chest wall. The patient denies any chest pain, shortness of breath, nausea, or abdominal pain. She appears to be resting comfortably at this time. PAST MEDICAL HISTORY: 1. Anxiety. 2. Depression. 3. Recent diagnosis of left upper lobe adenocarcinoma. 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 HOME MEDICATIONS: 1. Ibuprofen 200 mg 2 caps p.o. q.4 hours p.r.n. 2. Austin 5/325 mg 1 tab p.o. q.4 hours p.r.n. 3. Celexa 20 mg p.o. daily. 4. Xanax 0.25 mg p.o. q.6 hours p.r.n. CURRENT MEDICATIONS: 1. Acetaminophen 650 mg p.o. q.4 hours p.r.n. 2. Xanax 0.25 mg p.o. q.6 hours p.r.n. 3. Celexa 20 mg p.o. daily. 4. Colace 100 mg p.o. b.i.d. 5. Heparin 5000 units subcu q.8 hours. 6. Dilaudid CARPENTER SUPERVISOR WOODEN SHIP per protocol. 7. Toradol 50 mg IV q.6 hours p.r.n. 8. LR 75 mL an hour. 9. Xopenex 0.3 mg/3 mL neb. 10. Zofran 4 mg IV q.4 hours p.r.n. 11. Oxycodone HCl 5 mg p.o. q.4 hours p.r.n. 12. Bupivacaine epidural per protocol. ALLERGIES: No known allergies. FAMILY HISTORY: The patient has a sister with a history of lung cancer who of disease. SOCIAL HISTORY: The patient reports [id number] smoking history, smoking half pack of cigarettes a day, quitting approximately a week ago. Denies alcohol use. She is a retired gentile, who lives at home with her , Will Lauren, who is her healthcare proxy. His number is [phone]. REVIEW OF SYSTEMS: A 14-point review of systems was performed. All the pertinent positives and negatives are mentioned in the history of present illness. All the remaining systems are negative. PHYSICAL EXAMINATION: General Appearance: A 71-year-old female lying in the ICU bed, resting comfortably, alert and oriented x3, in no acute distress. Vital Signs: Temperature 97.3, heart rate 82, respirations 14, O2 sat 99% on 4 L nasal cannula, blood pressure 159/57 by cuff pressure and 159/57 by arterial pressure. HEENT: Head is normocephalic, atraumatic. Pupils equal, reactive to light. Oropharynx is clear. Dry mucous membranes. Good dentition. Cardiac: S1, S2. Regular rate and rhythm. No murmurs, rubs, or gallops appreciated. No lower extremity edema noted. Respiratory: Right lung is clear to auscultation throughout. Left lung is diminished with of chest tube to lateral chest wall. Abdomen: Soft, nondistended, nontender. Normal bowel sounds x4. Extremities: Full range of motion in all extremities. No edema or cyanosis noted. Neuro: Grossly intact. Psych: Appropriate to situation. DIAGNOSTIC STUDIES/LAB DATA: No preop labs noted. ASSESSMENT AND PLAN: Ms. Lauren is a 71-year-old female with a past medical history of long-term tobacco abuse, recently diagnosed with left upper lobe adenocarcinoma, and recent 1-day hospitalization for a distal UVJ obstructing stone in which she had a stent placed who also has a history of anxiety, depression, who underwent an elective left thoracotomy with left upper lobe lobectomy today with Dr. Carvalho. [facility] was asked to co-medical manage. 1. Status post left thoracotomy with left upper lobe lobectomy: Disposition per surgical team. The patient's pain is currently being managed by an epidural and IV Dilaudid CARPENTER SUPERVISOR WOODEN SHIP. She appears to be comfortable and stable at this time. 2. Anxiety/depression: Continue home dose Celexa and Xanax p.r.n. 3. Recent diagnosis of moderate right hydronephrosis secondary to obstruction at the UVJ with a 9 mm stone, status post ureteral stent placement, followed by Dr. Steward as an outpatient. Per the patient, she has a followup appointment with Dr. Steward as an outpatient. 4. DVT prophylaxis: Heparin subcu. 5. Code status: Full code. TIME SPENT: Approximately 45 minutes were spent on this consultation. JAYSON OSBORNE NP CC: Dr. Sahu* [id number]/[facility] #: [id number] MTDAta
[2016-07-03] MEDS: Heparin VIAL(*) 5000 UNITS/ML VIAL (FIVE THOUSAND) SUBCUT SCH ×3 (05:14→21:43)
--- NOTE | 2016-07-03 05:21 | OP ---
DATE OF OPERATION: 07/02/16 - ROOM #ICU-03 DATE OF : 41 SURGEON: Sukhi Carvalho MD HEAT TREATING OPERATOR: Carissa Peralta NP ANESTHESIOLOGIST: Dr. Flores. ANESTHESIA: General and epidural anesthesia. PRE-OP DIAGNOSIS: Carcinoma of the left upper lobe lung. POST-OP DIAGNOSIS: Carcinoma of the left upper lobe lung. OPERATIVE PROCEDURE: Thoracotomy with left upper lobectomy and lymph node dissection. DESCRIPTION OF PROCEDURE: The patient was supine on the operating table after adequate general anesthetic, compression stockings, Tanika Hugger warmer, intravenous antibiotics, Rashid catheter, arterial catheter. The patient was turned in the lateral decubitus position with the left chest upward, axillary roll, and appropriate padding and protection and securing to the table was carried out. Left chest was prepped with antiseptic and draped in a sterile fashion. An approximately 15-cm incision was created in the left lateral chest. Inferior and superior flaps were created. The latissimus was mobilized. The serratus was entered. The fifth rib was entered and approximately 10-cm segment removed. The chest was then entered. Large tumor was identified adherent to the pleura anteriorly and subpleural dissection was carried out in this location to achieve adequate margin. This was over approximately a 5-cm area of adherence. The tumor was closed down to the hilum, but not too bad. The branches of the pulmonary artery were readily identified, dissected free, ligated, clipped and divided. The superior pulmonary vein was a little tight on the tumor, but was able to be encircled and stapled using a 30 V3 stapler. Individual branches were then ligated and divided. The branches to the lingula were both then ligated, clipped and divided. The fissure anteriorly and posteriorly was divided using a MYAH stapler and the bronchus was secured using a TA-30 stapler, 3.5-mm staple. The operative field was irrigated, free fluid was suctioned, hemostasis was good. The bronchial stump was checked against 35 cm water pressure and showed no evidence of air leak. Attention was then turned to lymph node dissection. The inferior pulmonary ligament was divided and inferior pulmonary ligament lymph nodes were dissected free. Subcarinal lymph nodes and station 5 and station 6 lymph nodes were all dissected free and sent separately for pathologic evaluation. The operative field was again irrigated and free fluid was suctioned, hemostasis was adequate. Clips or cautery were utilized as appropriate for the lymph node dissections. A 36- Malay chest tube was placed through an inferior stab wound, placed up towards the apex. Additional side holes were cut, it was sutured to skin with 2-0 Prolene. The ribs were then approximated using double loop Biosyn, the intercostal muscle with 2-0 Polysorb. The serratus and latissimus were put back in their natural place using 0 Polysorb. A BHAKTI drain was placed in the subcutaneum and the subcutaneous tissue was closed with 3-0 Vicryl followed by clips for the skin. Sterile dressing was placed. The BHAKTI drain was sutured with 3-0 Prolene. She tolerated the procedure well, was awakened and brought to Recovery in good condition. There were no complications. Drains are Laurent -Gill and 36-Malay chest tube. Sponge and instruments counts were correct. Specimens as noted above were the left upper lobectomy with fifth rib, inferior pulmonary ligament, station 9 lymph nodes, subcarinal station 7 lymph nodes, aortopulmonary window, station 5 lymph nodes, and periaortic station 6 lymph nodes. CC: Sukhi Carvalho MD; Dr. Sahu; Dr. Padilla; Dr. Ramirez; Dr. Jean Paul Field* [id number]/[facility] #: [id number] [facility]
[2016-07-03 05:55] LABS: Hematocrit 33 % (35-47); Hemoglobin 10.2 g/dl (12.0-16.0); Mean Corpuscular HGB Conc 32 g/dl (31-36); Mean Corpuscular Hemoglobin 25 pg (27-31); Mean Corpuscular Volume 79 fL (80-97); Mean Platelet Volume 8 um3 (7.4-10.4); Red Blood Count 4.13 10^6/ul (4.0-5.4); Red Cell Distribution Width 15 % (10.5-15); White Blood Count 19.3 10^3/ul (3.5-10.8)
[2016-07-03 06:20] LABS: BUN/Creatinine Ratio 21.5 (8-20); Calcium 8.7 mg/dL (8.6-10.3); EGFR African American 91.7 (>60); EGFR Non-African American 71.3 (>60); Potassium 4.8 mmol/L (3.5-5.0)
--- NOTE | 2016-07-03 07:46 | RAD ---
INDICATION: Postoperative thoracotomy COMPARISON: July 02, 2016 TECHNIQUE: An AP portable view obtained at 0510 hours is submitted. FINDINGS: Bones/Soft Tissues: There are no acute bony findings. There is left-sided thoracotomy. There is a left-sided chest tube projecting over the apex. There is scant subcutaneous emphysema Cardiomediastinal: The cardiomediastinal silhouette is normal. Lungs: Postoperative changes left hemithorax. No pneumothorax. Mild coarsening of interstitium. Mild volume loss right upper lobe appears improved. Pleura: Small bilateral effusions. Other: None IMPRESSION: LEFT-SIDED THORACOTOMY
[2016-07-03] MEDS: Docusate CAP* 100 MG PO SCH ×2 (08:38→21:43)
[2016-07-03] MEDS: Ketorolac INJ* 15 MG/ML 1 ML VIAL IV PUSH PRN (08:38)
[2016-07-03] MEDS: Citalopram TAB* 20 MG PO SCH (08:38)
--- NOTE | 2016-07-03 11:55 | PN ---
Progress Note - Progress Note SOAP: Subjective: []The patient is a 71 year-old female with a 55 pack-year smoking history and anxiety. She was discovered to have a left upper lobe pulmonary mass following CT for unresolved pleuritic chest pain. Bronchoscopic biopsy was positive for adenocarcinoma. PET scan was negative for extrapulmonary disease. Yesterday, 09/12, she underwent thorectomy with left upper lobectomy and lymph node dissection. She is seen and examined at bedside. She reports moderated pain that is well alleviated when she remembers to use her MANAGEMENT ADVISOR pump. The pain external, at the incision sites. The denied difficulty breathing or abdominal pain. She still has a jackson cathater and denies having any bowel movements since surgery. She was helped to site up and into a chair at bedside. She reported significant anxiety and some confusion overnight and early this morning. She was mostly worried to be alone and now her daughter is also at the bedside. The only other symptom she reports is some blurred vision, not helped when she puts on her glasses. Objective: []Gen: The patient does not appear to be in any acute distress, when resting in the chair. She is hard of hearing, but alert, oriented and fully compliant with the exam. CV: Capillary refill <2 seconds, S1 and S1 auscultated, without murmurs, rubs or gallops. Peripheral pulses intact, no edema Pulm: bilateral chest wall expansion, lung sounds diminished throughout and absent at the frontal upper lung field on the left. No wheezing, rales, or rhinchi appreciated. Abd: normoactive bowel sounds; abdomen soft, non-tender, without palpable masses Assessment: []71 year old female with a history of left lung adenocarcinoma and anxiety, one day post thorectomy with left upper lobectomy and lymph node dissection. 1. Post-thorectomy w/ SURESH lobectomy. 2. Anxiety Plan: []1. Patient was encouraged to use her MANAGEMENT ADVISOR when she experiences pain, but also made aware that the narcotic may be causing her visual complaints and mild confusion. Given her diminished lung sounds, even on the right side, she was encouraged to use the incentive sperometer. He WBC count is 19.3 today, but may be reactive to traumatic surgery, so recheck CBC tomorrow. 2. Pt family is at bedside to help relieve her anxiety. Consider PRN ativan if this continues. 3. Disposition - continue hospitalization overnight to continue monitor clinical improvement. Ambulate as tolerated. Consider D/C jackson, advancement of diet, and transfer out of ICU with discussion with surgical team. Ke Tipton - MS3 [facility]
[2016-07-03] MEDS ORDERED: NS 0.9% 500 ML BAG* 500 ML IV SCH ×2 (13:00→15:00)
[2016-07-03] MEDS: Ropivacaine* 300 MG in NS 0.9% 250 ML* 240 ML EPIDURAL SCH (13:01)
--- NOTE | 2016-07-03 13:55 | PN ---
Subjective Date of Service: 07/03/16 Interval History: This is a 71 yo female s/p left upper lobectomy by Dr Carvalho 07/02/16. She has been admitted to the ICU postoperatively and Dr Carvalho has requested Hospitalist consult. Patient states she having persistent pain in the area of her chest tube. No chest pain or dyspnea. Reports some mild anxiety. She has been intermittently confused and states she is having trouble keeping the time of day straight. No abdominal pain, n/v. Objective Active Medications: Acetaminophen (Tylenol Tab*) 650 mg PO Q4H PRN PRN Reason: Pain Or Temperature >101 F Alprazolam (Xanax Tab*) 0.25 mg PO Q6H PRN PRN Reason: ANXIETY Citalopram Hydrobromide (Celexa Tab*) 20 mg PO DAILY [facility] Last Admin: 07/03/16 08:38 Dose: 20 mg Docusate Sodium (Colace Cap*) 100 mg PO BID [facility] Last Admin: 07/03/16 08:38 Dose: 100 mg Ephedrine Sulfate (Ephedrine Sulfate (Pressors)*) 5 mg IV PUSH Q5M PRN PRN Reason: hypotension systolic <85 Heparin Sodium (Porcine) (Heparin Vial(*)) 5,000 units SUBCUT Q8HR [facility] Last Admin: 07/03/16 05:14 Dose: 5,000 units Lactated Ringer's (Lactated Ringers 1000 Ml Bag*) 1,000 mls @ 75 mls/hr IV .per rate [facility] Last Admin: 07/03/16 05:19 Dose: 75 mls/hr Ropivacaine 300 mg/ Sodium (Chloride) 300 mls @ 0 mls/hr EPIDURAL Q24H [facility]; Per Protocol PRN Reason: Protocol Last Admin: 07/03/16 13:01 Dose: Not Given Lactated Ringer's (Lactated Ringers 500 Ml Bag*) 500 mls @ 2,000 mls/hr IV ONCE PRN PRN Reason: FOR SBP < 90 Hydromorphone HCl (Dilaudid Scenario Writer*) 20 mg in 20 mls @ 0 mls/hr PRODUCT SUPPORT REPRESENTATIVE .Q24H [facility]; Per Protocol PRN Reason: Protocol Last Admin: 07/02/16 16:21 Dose: 1 mls/hr Sodium Chloride (Ns 0.9% 500 Ml Bag*) 500 mls @ 1,000 mls/hr IV .BOLUS [facility] Stop: 07/03/16 14:00 Last Admin: 07/03/16 12:21 Dose: 1,000 mls/hr Ketorolac Tromethamine (Toradol Inj*) 15 mg IV PUSH Q6H PRN PRN Reason: PAIN Stop: 07/04/16 14:13 Last Admin: 07/03/16 08:38 Dose: 15 mg Nalbuphine HCl (Nubain*) 5 mg IV Q6H PRN PRN Reason: PRURITIS Ondansetron HCl (Zofran Inj*) 4 mg IV Q4H PRN PRN Reason: NAUSEA/VOMITING Last Admin: 07/03/16 08:38 Dose: 4 mg Oxycodone HCl (Roxycodone Tab*) 5 mg PO Q4H PRN PRN Reason: PAIN - MODERATE Vital Signs: Temp Pulse Resp BP Pulse Ox 98.9 F 78 15 113/40 97 07/03/16 13:00 07/03/16 13:00 07/03/16 13:39 07/03/16 13:00 07/03/16 13:00 Oxygen Devices in Use Now: None Appearance: Well appearing, but slightly lethargic female in NAD Neck: NL Appearance and Movements; NL JVP Respiratory: Symmetrical Chest Expansion and Respiratory Effort, Clear to Auscultation, - - some diminished breath sounds Cardiovascular: NL Sounds; No Murmurs; No JVD, RRR Abdominal: NL Sounds; No Tenderness; No Distention Extremities: No Edema Skin: No Rash or Ulcers Neurological: Alert and Oriented x 3 Result Diagrams: 07/03/16 05:38 07/03/16 05:38 Microbiology and Other Data: Microbiology 07/02/16 17:00 Nasal Screen MRSA (PCR)(SERENA) - Final Nasal Mrsa Negative Diagnostic Imaging: CXR - s/p SURESH lobectomy, chest tube in place. Small effusions. Assess/Plan/Problems-Billing Assessment: This is a 71 yo female with depression/anxiety who is now s/p left upper lobectomy by Dr Carvalho 07/02/16 for treatment of lung adenocarcinoma. Hospitalist has been asked to consult in this case. - Patient Problems (1) Status post lobectomy of lung Comment: POD #1 Management per surgery team Chest tube in place (2) Adenocarcinoma, lung Comment: s/p lobectomy, further treatment per oncology (3) Leukocytosis Comment: WBC 19.3 this am, primarily neutrophils Likely leukomoid reaction related to recent surgery, but review of prior labs appears that she has had elevated WBCs for the last several months Recommend continuing to follow and if persistent request heme/onc input regarding further workup (4) Anxiety and depression Comment: Fairly stable Cont Celexa and prn Xanax (5) Full code status (6) DVT prophylaxis Comment: SQ heparin per surgery Status and Disposition: Patient appears to be doing well postoperatively. No acute medical concerns. Hospitalist group will sign off at this time, but are happy to re-evaluate if necessary. Further management per surgery team.
[2016-07-04] MEDS: Heparin VIAL(*) 5000 UNITS/ML VIAL (FIVE THOUSAND) SUBCUT SCH ×3 (06:36→22:01)
[2016-07-04] MEDS: Citalopram TAB* 20 MG PO SCH (08:08)
[2016-07-04] MEDS: Docusate CAP* 100 MG PO SCH ×2 (08:08→22:01)
[2016-07-05] MEDS: ALPRAZolam TAB* 0.25 MG PO PRN (03:39)
[2016-07-05] MEDS: Heparin VIAL(*) 5000 UNITS/ML VIAL (FIVE THOUSAND) SUBCUT SCH ×3 (06:36→22:05)
--- NOTE | 2016-07-05 07:10 | RAD ---
INDICATION: Short of breath COMPARISON: July 03, 2016 TECHNIQUE: An AP portable view obtained at 0527 hours is submitted. FINDINGS: Bones/Soft Tissues: There are no acute bony findings. There is recent left-sided thoracotomy. The postsurgical changes and chest tube are unchanged Cardiomediastinal: The heart is normal in size. Lungs: Mild pleural and parenchymal change left chest. Mild diffuse interstitial prominence bilaterally. This may reflect mild interstitial edema Pleura: Small bilateral effusions. Other: None IMPRESSION: RECENT LEFT THORACOTOMY. SUSPECT MILD INTERSTITIAL EDEMA.
--- NOTE | 2016-07-05 08:05 | PN ---
Progress Note - Progress Note Note: Surgery Ms. Lauren had a rough night dealing with shortness of breath which she attributes to "panic attacks". This morning she c/o "can't get comfortable", and has left sided pain near tube site. Vital Signs 07/04/16 07/04/16 07/04/16 09:00 10:00 12:05 Temperature 99.2 F 99.2 F Pulse Rate 90 81 Respiratory 18 18 16 Rate Blood Pressure 118/48 124/47 139/52 (mmHg) O2 Sat by Pulse 98 99 Oximetry 07/04/16 07/04/16 07/04/16 12:27 12:35 13:27 Temperature 97.3 F Pulse Rate 81 Respiratory 18 16 18 Rate Blood Pressure 139/52 (mmHg) O2 Sat by Pulse 95 99 99 Oximetry 07/04/16 07/04/16 07/04/16 14:27 15:00 16:00 Temperature Pulse Rate Respiratory 18 18 18 Rate Blood Pressure (mmHg) O2 Sat by Pulse 99 99 99 Oximetry 07/04/16 07/04/16 07/04/16 16:09 18:12 19:09 Temperature 98.8 F Pulse Rate 83 83 Respiratory 17 Rate Blood Pressure 122/58 (mmHg) O2 Sat by Pulse 98 98 Oximetry 07/04/16 07/04/16 07/04/16 19:44 19:47 20:00 Temperature 98.6 F Pulse Rate 87 Respiratory 20 19 20 Rate Blood Pressure 132/50 (mmHg) O2 Sat by Pulse 98 100 99 Oximetry 07/04/16 07/04/16 07/04/16 21:00 22:00 23:00 Temperature Pulse Rate Respiratory 20 20 20 Rate Blood Pressure (mmHg) O2 Sat by Pulse 99 98 95 Oximetry 07/05/16 07/05/16 07/05/16 00:00 00:29 01:00 Temperature 97.9 F Pulse Rate 85 Respiratory 20 18 20 Rate Blood Pressure 137/41 (mmHg) O2 Sat by Pulse 95 98 98 Oximetry 07/05/16 07/05/16 07/05/16 02:00 03:34 03:39 Temperature 98.2 F Pulse Rate 87 Respiratory 20 20 20 Rate Blood Pressure (mmHg) O2 Sat by Pulse 98 95 Oximetry 07/05/16 07/05/16 07/05/16 03:50 04:00 05:39 Temperature Pulse Rate Respiratory 20 20 Rate Blood Pressure 148/52 (mmHg) O2 Sat by Pulse 95 Oximetry 07/05/16 07/05/16 06:00 07:00 Temperature Pulse Rate 97 Respiratory 20 20 Rate Blood Pressure (mmHg) O2 Sat by Pulse 95 96 Oximetry lungs: shallow breaths, but symmetric heart: reg CT: scant serous fluid; no resp. deandre. Intake & Output 07/04/16 07/05/16 07/05/16 22:59 06:59 14:59 Intake Total 560 1611 Output Total 100 1530 Balance 460 81 Intake: IV Fluids 1511 lactated ringers 1511 Oral 560 100 Output: Chest Tube #1 0 30 Urine 100 1500 Other: # Bowel Movements 0 Laboratory Results - last 24 hr 06/30/16 11:52 Crossmatch See Detail A/P: POD#3 s/p left upper lobectomy. Slow progress. Required supplemental O2 last night. Will decrease IVF and hopefully tube can come out later today.
[2016-07-05] MEDS: Docusate CAP* 100 MG PO SCH ×2 (08:29→22:05)
[2016-07-05] MEDS: Citalopram TAB* 20 MG PO SCH (08:29)
[2016-07-05] MEDS ORDERED: Magnesium Hydroxide LIQ* 30 ML UDC PO PRN (08:31)
[2016-07-05 08:51] LABS: Hematocrit 26 % (35-47); Hemoglobin 8.4 g/dl (12.0-16.0); Mean Corpuscular HGB Conc 33 g/dl (31-36); Mean Corpuscular Hemoglobin 25 pg (27-31); Mean Corpuscular Volume 78 fL (80-97); Mean Platelet Volume 8 um3 (7.4-10.4); Red Blood Count 3.31 10^6/ul (4.0-5.4); Red Cell Distribution Width 15 % (10.5-15); White Blood Count 9.8 10^3/ul (3.5-10.8)
[2016-07-05 08:55] LABS: Calcium 8.3 mg/dL (8.6-10.3); EGFR African American 155.5 (>60); EGFR Non-African American 120.9 (>60); Potassium 3.8 mmol/L (3.5-5.0)
[2016-07-05] MEDS: HYDROmorphone PCA* 20 MG/20 ML PCA.SYRING PCA SCH (14:24)
[2016-07-06] MEDS: Heparin VIAL(*) 5000 UNITS/ML VIAL (FIVE THOUSAND) SUBCUT SCH ×3 (05:24→22:15)
[2016-07-06] MEDS: Docusate CAP* 100 MG PO SCH ×2 (09:26→20:54)
[2016-07-06] MEDS: Citalopram TAB* 20 MG PO SCH (09:26)
--- NOTE | 2016-07-06 10:44 | PN ---
Progress Note - Progress Note SOAP: Subjective: []POD #4. She has significant pain. Has had some SOB and panic attacks. Progress slow. No fevers. Eating some. Cannot take deep breath. Acetaminophen (Tylenol Tab*) 650 mg PO Q4H PRN PRN Reason: Pain Or Temperature >101 F Alprazolam (Xanax Tab*) 0.25 mg PO Q6H PRN PRN Reason: ANXIETY Last Admin: 07/05/16 03:39 Dose: 0.25 mg Citalopram Hydrobromide (Celexa Tab*) 20 mg PO DAILY [facility] Last Admin: 07/06/16 09:26 Dose: 20 mg Docusate Sodium (Colace Cap*) 100 mg PO BID [facility] Last Admin: 07/06/16 09:26 Dose: 100 mg Heparin Sodium (Porcine) (Heparin Vial(*)) 5,000 units SUBCUT Q8HR [facility] Last Admin: 07/06/16 05:24 Dose: 5,000 units Hydromorphone HCl (Dilaudid Manufacturing Specialist*) 20 mg in 20 mls @ 0 mls/hr MANAGER OF WAREHOUSE .Q24H [facility]; Per Protocol PRN Reason: Protocol Last Admin: 07/05/16 14:24 Dose: 0.3 mls/hr Lactated Ringer's (Lactated Ringers 1000 Ml Bag*) 1,000 mls @ 0 mls/hr IV .per rate [facility] PRN Reason: KVO Last Admin: 07/05/16 18:05 Dose: 30 mls/hr Ondansetron HCl (Zofran Inj*) 4 mg IV Q4H PRN PRN Reason: NAUSEA/VOMITING Last Admin: 07/03/16 08:38 Dose: 4 mg Objective: [] Vital Signs Temp Pulse Resp BP Pulse Ox 97.9 F 80 18 137/53 97 07/06/16 07:29 07/06/16 07:29 07/06/16 07:29 07/06/16 07:29 07/06/16 07:29 HEENT - Pale,thin and with oxygen Decreased BS both sides, not taking deep breath Tachycardia, otherwise negative Chest tube in place +BS No RICHARD Assessment: []She is stable POD#4 but progress is slow. Several issues: Plan: []1. SOB. Better on Oxygen and sat of 97%. Agree with holding IVF and treating pain. Will follow, if not improving will need to consider PE. 2. Lung Cancer. Pathology pending, specifically rob status.
--- NOTE | 2016-07-06 11:19 | PN ---
Progress Note - Progress Note SOAP: Subjective: Events noted, oxygen saturation drops with minimal excretion, currently on 10L/ min via NC. Patient denies SOB or chest pain. Dr. Shen evaluated patient as well. Objective: Awake and alert, hard of hearing, in NAD. VSS, sats now at low 90s Lungs with decreased breath sounds on L side. Chest tube output noted, no apparent leak. Incision clean and dry. Assessment: POD#4, still with pain at chest tube insertion site, oxygen desaturation with minimal excertion. Plan: Discussed with , will ask hospitalist to see patient today. ? increased L consolidation, ? pneumonia.
[2016-07-06 12:56] LABS: Hematocrit 28 % (35-47); Mean Corpuscular HGB Conc 32 g/dl (31-36); Mean Corpuscular Hemoglobin 25 pg (27-31); Mean Corpuscular Volume 78 fL (80-97); Mean Platelet Volume 8 um3 (7.4-10.4); Red Blood Count 3.64 10^6/ul (4.0-5.4); Red Cell Distribution Width 15 % (10.5-15); White Blood Count 13.4 10^3/ul (3.5-10.8)
[2016-07-06 12:57] LABS: Add Diff/Slide Review? Slide Review Added; Comments Flag Yes
[2016-07-06 13:12] LABS: BUN/Creatinine Ratio 23.1 (8-20); C Reactive Protein 133.46 mg/L (< 5.00); Calcium 8.7 mg/dL (8.6-10.3); EGFR African American 148.7 (>60); EGFR Non-African American 115.6 (>60); Potassium 4.1 mmol/L (3.5-5.0)
[2016-07-06] MEDS: Cetirizine* 10 MG TAB PO SCH (13:14)
--- NOTE | 2016-07-06 14:40 | PN ---
Subjective Date of Service: 07/06/16 Interval History: I was asked by the general surgery team to please re-evaluate this patient for significant hypoxia. Patient is now POD #4 s/p left upper lobectomy. Patient has been desaturating into the 70s with any activity. Chest XR from yesterday shows increasing consolidation in the left lung field, no pneumothorax, chest tube is still in place. Patient has been having difficulty with pain management since surgery, mostly around her chest tube site, utlizing a Dilaudid HANDLE LATHE OPERATOR frequently. She denies dyspnea at rest but reports significant dyspnea with activity. She has been afebrile. Denies significant cough. No abdominal pain, n/v. Objective Active Medications: Acetaminophen (Tylenol Tab*) 650 mg PO Q4H PRN PRN Reason: Pain Or Temperature >101 F Alprazolam (Xanax Tab*) 0.25 mg PO Q6H PRN PRN Reason: ANXIETY Last Admin: 07/05/16 03:39 Dose: 0.25 mg Cetirizine HCl (Zyrtec*) 10 mg PO DAILY [facility] PRN Reason: Protocol Last Admin: 07/06/16 13:14 Dose: 10 mg Citalopram Hydrobromide (Celexa Tab*) 20 mg PO DAILY [facility] Last Admin: 07/06/16 09:26 Dose: 20 mg Docusate Sodium (Colace Cap*) 100 mg PO BID [facility] Last Admin: 07/06/16 09:26 Dose: 100 mg Heparin Sodium (Porcine) (Heparin Vial(*)) 5,000 units SUBCUT Q8HR [facility] Last Admin: 07/06/16 13:14 Dose: 5,000 units Hydromorphone HCl (Dilaudid Teacher Selection Specialist*) 20 mg in 20 mls @ 0 mls/hr HANDLE LATHE OPERATOR .Q24H [facility]; Per Protocol PRN Reason: Protocol Last Admin: 07/05/16 14:24 Dose: 0.3 mls/hr Lactated Ringer's (Lactated Ringers 1000 Ml Bag*) 1,000 mls @ 0 mls/hr IV .per rate [facility] PRN Reason: KVO Last Admin: 07/05/16 18:05 Dose: 30 mls/hr Levofloxacin/Dextrose (Levaquin 500 Mg Ivpremix(*)) 500 mg in 100 mls @ 100 mls /hr IVPB Q24H [facility] Piperacillin Sod/Tazobactam Sod (Zosyn 3.375 Gm In Ns Premix*) 3.375 gm in 100 mls @ 25 mls/hr IVPB Q8H [facility] Ondansetron HCl (Zofran Inj*) 4 mg IV Q4H PRN PRN Reason: NAUSEA/VOMITING Last Admin: 07/03/16 08:38 Dose: 4 mg Vital Signs: Temp Pulse Resp BP Pulse Ox 97.9 F 80 18 137/53 97 07/06/16 07:29 07/06/16 07:29 07/06/16 07:29 07/06/16 07:29 07/06/16 07:29 Oxygen Devices in Use Now: None Appearance: Well appearing, mildly lethargic in NAD. Accompanied by her daughter. Neck: NL Appearance and Movements; NL JVP Respiratory: Symmetrical Chest Expansion and Respiratory Effort, - - crackles appreciated in L lung mederos, L sided chest tube in place Cardiovascular: RRR Abdominal: NL Sounds; No Tenderness; No Distention Extremities: No Edema Skin: No Rash or Ulcers Neurological: Alert and Oriented x 3 Result Diagrams: 07/06/16 12:25 07/06/16 12:25 Microbiology and Other Data: Microbiology 07/02/16 17:00 Nasal Screen MRSA (PCR)(SERENA) - Final Nasal Mrsa Negative Diagnostic Imaging: CXR - s/p SURESH lobectomy, chest tube in place. Small effusions. CXR 07/05 - increased L lung consolidation Assess/Plan/Problems-Billing Assessment: This is a 71 yo female with depression/anxiety who is now s/p left upper lobectomy by Dr Carvalho 07/02/16 for treatment of lung adenocarcinoma. Hospitalist has been asked to consult in this case. - Patient Problems (1) Status post lobectomy of lung Comment: POD #4 Management per surgery team Chest tube in place (2) Hypoxia Comment: Patient remains hypoxic postoperatively and severely desaturates with any activity CXR from yesterday shows some increasing consolidation in the left lung mederos which may represent PNA v atelectasis Repeat labs today show moderate leukocytosis, procalcitonin is only 0.2 She remains afebrile with little cough Recommended CT of the chest to patient and her daughter to help to determine atelectasis v PNA, but her daughter was afraid the CT would be too exhausting for her Recommend based on this information empirically treating for a PNA, need to cover hospital acquired pathogens Start Zosyn and Levaquin Also recommend aggressive chest therapy with continued use of incentive spirometry and ordered a flutter valve Patient may require some time with positive pressure from high flow to help re- expand the atelectatic portion of the lung If no improvement noted tomorrow, would suggest CT of the chest (3) Adenocarcinoma, lung Comment: s/p lobectomy, further treatment per oncology (4) Anxiety and depression Comment: Fairly stable Cont Celexa and prn Xanax (5) Full code status (6) DVT prophylaxis Comment: SQ heparin per surgery Status and Disposition: Hospitalist group will follow this patient with surgery.
[2016-07-06] MEDS: guaiFENesin ER TAB 600 MG PO SCH ×2 (15:46→20:53)
[2016-07-06] MEDS: Levofloxacin 500 MG IVPREMIX(* 500 MG/100 ML BAG IVPB SCH (15:48)
[2016-07-06] MEDS ORDERED: ZOSYN 3.375 GM ONE TIME DOSE-OVER 30 MINUTES IVPB (16:30)
[2016-07-06] MEDS: Piperac/Tazob 3.375 gm in NS* 3.375 GM/100 ML BAG IVPB SCH (20:53)
[2016-07-07] MEDS: ALPRAZolam TAB* 0.25 MG PO PRN (03:59)
[2016-07-07] MEDS: Piperac/Tazob 3.375 gm in NS* 3.375 GM/100 ML BAG IVPB SCH ×3 (04:37→20:53)
[2016-07-07] MEDS: Heparin VIAL(*) 5000 UNITS/ML VIAL (FIVE THOUSAND) SUBCUT SCH ×3 (05:40→22:20)
--- NOTE | 2016-07-07 08:50 | PN ---
Progress Note - Progress Note Note: Surgery Ms. Lauren feels she is "not getting better". Nursing notes indicate she now rebounds quickly after episodes of desaturation. Vital Signs 07/06/16 07/06/16 07/06/16 09:00 11:00 11:27 Temperature 97.8 F Pulse Rate 86 Respiratory 20 18 22 Rate Blood Pressure 133/47 (mmHg) O2 Sat by Pulse 92 95 100 Oximetry 07/06/16 07/06/16 07/06/16 13:00 15:06 15:39 Temperature 98.1 F Pulse Rate 83 Respiratory 20 18 20 Rate Blood Pressure 150/46 (mmHg) O2 Sat by Pulse 93 95 93 Oximetry 07/06/16 07/06/16 07/06/16 17:06 19:00 19:24 Temperature 98.5 F Pulse Rate 100 Respiratory 16 18 16 Rate Blood Pressure 129/47 (mmHg) O2 Sat by Pulse 96 98 97 Oximetry 07/06/16 07/06/16 07/06/16 20:00 20:45 21:00 Temperature Pulse Rate 70 Respiratory 16 15 18 Rate Blood Pressure (mmHg) O2 Sat by Pulse 99 97 Oximetry 07/06/16 07/06/16 07/07/16 23:00 23:30 01:00 Temperature 98.1 F Pulse Rate 73 Respiratory 18 17 20 Rate Blood Pressure 140/51 (mmHg) O2 Sat by Pulse 96 99 96 Oximetry 07/07/16 07/07/16 07/07/16 03:00 03:27 03:59 Temperature 97.9 F Pulse Rate 82 Respiratory 20 18 20 Rate Blood Pressure 147/44 (mmHg) O2 Sat by Pulse 93 98 Oximetry 07/07/16 07/07/16 07/07/16 05:00 05:59 07:15 Temperature Pulse Rate Respiratory 18 18 16 Rate Blood Pressure (mmHg) O2 Sat by Pulse 98 93 Oximetry 07/07/16 07:19 Temperature 97.9 F Pulse Rate 76 Respiratory 20 Rate Blood Pressure 134/51 (mmHg) O2 Sat by Pulse [address] 150 cc overnight, serous fluid no air leak, no resp. deandre. Laboratory Results - last 24 hr 07/06/16 07/06/16 07/06/16 12:25 12:25 12:25 WBC 13.4 H RBC 3.64 L Hgb 9.0 L Hct 28 L MCV 78 L MCH 25 L MCHC 32 RDW 15 Plt Count 378 MPV 8 Neut % (Auto) 84.0 H Lymph % (Auto) 8.1 L Warren % (Auto) 6.8 Eos % (Auto) 0.3 Baso % (Auto) 0.8 Absolute Neuts (auto) 11.2 H Absolute Lymphs (auto) 1.1 Absolute Monos (auto) 0.9 H Absolute Eos (auto) 0 Absolute Basos (auto) 0.1 Absolute Nucleated RBC 0.01 Nucleated RBC % 0.1 Sodium 135 Potassium 4.1 Chloride 97 L Carbon Dioxide 32 Anion Gap 6 BUN 12 Creatinine 0.52 Est GFR ( Amer) 148.7 Est GFR (Non-Af Amer) 115.6 BUN/Creatinine Ratio 23.1 H Glucose 121 H Calcium 8.7 C-Reactive Protein 133.46 H Procalcitonin 0.2 Intake & Output 07/06/16 07/07/16 07/07/16 22:59 06:59 14:59 Intake Total 120 1510 Output Total 350 420 250 Balance -230 1090 -250 Intake: IV Fluids 1050 ABX - ZOSYN 337 NS 713 Oral 120 460 Output: Chest Tube #1 95 Urine 350 325 250 A/P: POD#5 s/p left upper lobectomy, slow improvement. Will d/c CT today. CLFoster
[2016-07-07 08:53] LABS: Hematocrit 26 % (35-47); Hemoglobin 8.3 g/dl (12.0-16.0); Mean Corpuscular HGB Conc 33 g/dl (31-36); Mean Corpuscular Hemoglobin 25 pg (27-31); Mean Corpuscular Volume 78 fL (80-97); Mean Platelet Volume 8 um3 (7.4-10.4); Red Cell Distribution Width 15 % (10.5-15); White Blood Count 13.3 10^3/ul (3.5-10.8)
[2016-07-07 09:10] LABS: BUN/Creatinine Ratio 19.3 (8-20); C Reactive Protein 149.04 mg/L (< 5.00); Calcium 8.5 mg/dL (8.6-10.3); EGFR African American 133.7 (>60); Potassium 3.9 mmol/L (3.5-5.0)
[2016-07-07] MEDS: Citalopram TAB* 20 MG PO SCH (10:14)
[2016-07-07] MEDS: Cetirizine* 10 MG TAB PO SCH (10:14)
[2016-07-07] MEDS: Docusate CAP* 100 MG PO SCH ×2 (10:14→20:54)
[2016-07-07] MEDS: guaiFENesin ER TAB 600 MG PO SCH ×2 (10:15→20:54)
--- NOTE | 2016-07-07 12:10 | PN ---
Subjective Date of Service: 07/07/16 Interval History: Patient continues to complain of difficulty hearing and it has degraded to the point that she is writing notes to her daughter. She is still having pain around the chest tube. Some dyspnea with exertion but none at rest Objective Active Medications: Acetaminophen (Tylenol Tab*) 650 mg PO Q4H PRN PRN Reason: Pain Or Temperature >101 F Alprazolam (Xanax Tab*) 0.25 mg PO Q6H PRN PRN Reason: ANXIETY Last Admin: 07/07/16 03:59 Dose: 0.25 mg Cetirizine HCl (Zyrtec*) 10 mg PO DAILY [facility] PRN Reason: Protocol Last Admin: 07/07/16 10:14 Dose: 10 mg Citalopram Hydrobromide (Celexa Tab*) 20 mg PO DAILY [facility] Last Admin: 07/07/16 10:14 Dose: 20 mg Docusate Sodium (Colace Cap*) 100 mg PO BID [facility] Last Admin: 07/07/16 10:14 Dose: 100 mg Guaifenesin (Mucinex*) 1,200 mg PO BID [facility] Last Admin: 07/07/16 10:15 Dose: 1,200 mg Heparin Sodium (Porcine) (Heparin Vial(*)) 5,000 units SUBCUT Q8HR [facility] Last Admin: 07/07/16 05:40 Dose: 5,000 units Hydromorphone HCl (Dilaudid Shrimp Header*) 20 mg in 20 mls @ 0 mls/hr RN L AND D .Q24H [facility]; Per Protocol PRN Reason: Protocol Last Admin: 07/05/16 14:24 Dose: 0.3 mls/hr Levofloxacin/Dextrose (Levaquin 500 Mg Ivpremix(*)) 500 mg in 100 mls @ 100 mls /hr IVPB Q24H [facility] Last Admin: 07/06/16 15:48 Dose: 100 mls/hr Piperacillin Sod/Tazobactam Sod (Zosyn 3.375 Gm In Ns Premix*) 3.375 gm in 100 mls @ 25 mls/hr IVPB Q8H [facility] Last Admin: 07/07/16 04:37 Dose: 25 mls/hr Ondansetron HCl (Zofran Inj*) 4 mg IV Q4H PRN PRN Reason: NAUSEA/VOMITING Last Admin: 07/03/16 08:38 Dose: 4 mg Polyethylene Glycol/Electrolytes (Miralax*) 17 gm PO DAILY [facility] Senna (Senokot Tab*) 1 tab PO BEDTIME PRN PRN Reason: CONSTIPATION Vital Signs: Temp Pulse Resp BP Pulse Ox 97.9 F 76 16 134/51 97 07/07/16 07:19 07/07/16 07:19 07/07/16 09:00 07/07/16 07:19 07/07/16 09:00 Oxygen Devices in Use Now: None Appearance: Well appearing elderly female in NAD. Accompanied by her daughter Ears/Nose/Mouth/Throat: - - mod cerumen, bilateral serous effusion Neck: NL Appearance and Movements; NL JVP Respiratory: Symmetrical Chest Expansion and Respiratory Effort, Clear to Auscultation, - - crackles at L lung have resolved Cardiovascular: RRR Abdominal: NL Sounds; No Tenderness; No Distention Extremities: No Edema Skin: No Rash or Ulcers Neurological: Alert and Oriented x 3 Lines/Tubes/Other Access: Clean, Dry and Intact Chest Tube - L sided chest tube in place Result Diagrams: 07/07/16 08:21 07/07/16 08:21 Microbiology and Other Data: Microbiology 07/02/16 17:00 Nasal Screen MRSA (PCR)(SERENA) - Final Nasal Mrsa Negative Diagnostic Imaging: CXR - s/p SURESH lobectomy, chest tube in place. Small effusions. CXR 07/05 - increased L lung consolidation Assess/Plan/Problems-Billing Assessment: This is a 71 yo female with depression/anxiety who is now s/p left upper lobectomy by Dr Carvalho 07/02/16 for treatment of lung adenocarcinoma. Hospitalist has been asked to consult in this case. - Patient Problems (1) Acute postoperative respiratory insufficiency Comment: Patient remains hypoxic postoperatively and severely desaturates with any activity CXR from 07/05 shows some increasing consolidation in the left lung mederos which may represent PNA v atelectasis Labs demonstrate mod leukocytosis and increasing CRP, but neg procalcitonin She remains afebrile Started aggressive chest therapy yesterday with flutter valve and IS Empirically started Levaquin/Zosyn for HAP yesterday Patient may require some time with positive pressure from high flow to help re- expand the atelectatic portion of the lung Ordered CT of the chest for this afternoon, as this may help to de-escalated abx therapy Noted improvement in oxygenation today and lung sounds on auscultation (2) Status post lobectomy of lung Comment: POD #5 Management per surgery team Chest tube in place with plans to remove today (3) Adenocarcinoma, lung Comment: s/p lobectomy, further treatment per oncology (4) Anxiety and depression Comment: Fairly stable Cont Celexa and prn Xanax (5) Full code status (6) DVT prophylaxis Comment: SQ heparin per surgery Status and Disposition: Hospitalist group will continue to follow this patient with surgery.
--- NOTE | 2016-07-07 14:11 | RAD ---
INDICATION: History of LEFT upper lobe lung cancer post recent thoracotomy with lobectomy. Shortness of breath. Assess for pneumonia versus atelectasis. COMPARISON: July 05, 2016 chest radiograph. May 21, 2016 CT prior to LEFT upper lobe resection. TECHNIQUE: Multidetector CT images were obtained from the lung apices to the upper abdomen. Evaluation of the viscera is limited without IV contrast. REPORT: Postsurgical change of LEFT upper lobectomy with gas and fluid in the post partial pneumonectomy space. Small dependent LEFT pleural effusion with partial atelectasis of the LEFT lower lobe. Small dependent RIGHT pleural effusion with associated near complete atelectasis of the RIGHT lower lobe. Alveolar and interstitial consolidation at the posterior segment of the RIGHT upper lobe new compared with the May 21, 2016 exam is suspicious for pneumonia given absence of volume loss to favor atelectasis. Negative for mediastinal shift. Mild cardiomegaly new compared with the prior exam. Negative for pericardial effusion. Atherosclerotic calcification of the thoracic aorta and coronary arteries. Multiple enlarged mediastinal lymph nodes including 1.1 cm short axis AP window, 1.3 cm short axis precarinal, and 1.2 cm short axis subcarinal nodes without significant change. Unremarkable Limited images through the upper abdomen. Postsurgical defects of the LEFT fifth and sixth ribs laterally noted. LEFT lateral chest wall edema and subcutaneous emphysema without suggestion of a loculated fluid collection. IMPRESSION: 1. Postsurgical change of recent LEFT upper lobectomy partial atelectasis of the LEFT lower lobe. 2. Near complete atelectasis of the RIGHT lower lobe. 3. Consolidation at the posterior segment of the RIGHT upper lobe concerning for pneumonia. 4. Mild cardiomegaly new compared with the prior exam. Probable mild interstitial edema. 5. In addition to fluid at the LEFT post lobectomy space there are small bilateral dependent pleural effusions.
[2016-07-07] MEDS: Fluticasone NASAL SPRAY 50MCG* 16 gm SPRAY BTL BOTH NARES SCH ×2 (15:12→20:54)
[2016-07-07] MEDS: Levofloxacin 500 MG IVPREMIX(* 500 MG/100 ML BAG IVPB SCH ×2 (15:40→17:43)
[2016-07-07] MEDS ORDERED: HYDROcodone/ACETAMIN 5-325 MG* 1 TAB PO PRN (17:17)
--- NOTE | 2016-07-07 17:29 | PN ---
Progress Note - Progress Note Note: Surgery Note (late entry; patient seen for chest tube removal at 12:30) Per Dr. Shen, chest tube to be removed. No evidence of air leak; ~ 150 ml of serosanguinous drainage over past 24 hr. Chest tube removed w/o incident. Occlusive dressing placed. Potential discharge plans discussed w/ daughter. CT scan from this afternoon and pathology reports reviewed; not discussed by myself w/ patient or daughter.
[2016-07-07] MEDS: HYDROcodone/ACETAMIN 5-325 MG* 1 TAB PO PRN (19:51)
[2016-07-07] MEDS: Senna TAB PO PRN (20:56)
[2016-07-08] MEDS: HYDROcodone/ACETAMIN 5-325 MG* 1 TAB PO PRN ×5 (03:45→22:16)
[2016-07-08] MEDS: Piperac/Tazob 3.375 gm in NS* 3.375 GM/100 ML BAG IVPB SCH ×3 (04:36→20:41)
[2016-07-08] MEDS: Heparin VIAL(*) 5000 UNITS/ML VIAL (FIVE THOUSAND) SUBCUT SCH ×3 (05:48→22:13)
[2016-07-08 06:39] LABS: Hematocrit 25 % (35-47); Hemoglobin 7.9 g/dl (12.0-16.0); Mean Corpuscular HGB Conc 32 g/dl (31-36); Mean Corpuscular Hemoglobin 25 pg (27-31); Mean Corpuscular Volume 77 fL (80-97); Mean Platelet Volume 7 um3 (7.4-10.4); Red Blood Count 3.18 10^6/ul (4.0-5.4); Red Cell Distribution Width 15 % (10.5-15); White Blood Count 10.3 10^3/ul (3.5-10.8)
[2016-07-08 06:53] LABS: BUN/Creatinine Ratio 16.9 (8-20); C Reactive Protein 154.88 mg/L (< 5.00); Calcium 8.4 mg/dL (8.6-10.3); EGFR African American 128.5 (>60); EGFR Non-African American 99.9 (>60); Potassium 3.6 mmol/L (3.5-5.0)
[2016-07-08] MEDS: Docusate CAP* 100 MG PO SCH ×2 (09:39→20:33)
[2016-07-08] MEDS: Cetirizine* 10 MG TAB PO SCH (09:39)
[2016-07-08] MEDS: Polyethylene Glycol 3350* 17 GM PACKET PO SCH (09:39)
[2016-07-08] MEDS: Citalopram TAB* 20 MG PO SCH (09:39)
[2016-07-08] MEDS: Fluticasone NASAL SPRAY 50MCG* 16 gm SPRAY BTL BOTH NARES SCH ×2 (09:39→20:40)
[2016-07-08] MEDS: guaiFENesin ER TAB 600 MG PO SCH ×2 (09:39→20:32)
--- NOTE | 2016-07-08 10:47 | PN ---
Progress Note - Progress Note Note: Surgery Progress: S: POD #6. Seems to have improved considerably in the past day. Less pain ( doing well on [place] only). Denies SOB, even w/ ambulation. Down to 2 l O2 and sats are good. Moving bowels. O: Vital Signs - 8 hr 07/08/16 07/08/16 07/08/16 03:45 04:01 05:45 Temperature 97.8 F Pulse Rate 78 Respiratory 20 22 18 Rate Blood Pressure 147/59 (mmHg) O2 Sat by Pulse 97 Oximetry 07/08/16 09:39 Temperature Pulse Rate Respiratory 18 Rate Blood Pressure (mmHg) O2 Sat by Pulse Oximetry Intake and Output Last 24 Hours 07/06/16 07/07/16 07/08/16 07/09/16 06:59 06:59 06:59 06:59 Intake Total 2040 2030 1129 300 Output Total 1310 1690 1425 400 Balance 730 340 -296 -100 Weight 155 lb 12.8 oz Intake: IV Fluids 1050 118 ABX - ZOSYN 337 NS 713 118 IVPB 81 ABX - ZOSYN 81 Oral 2040 980 930 300 Output: Chest Tube #1 270 165 Urine 1040 1525 1425 400 Other: Estimated Void Medium Estimated Stool Amount Medium # Voids 1 Heart: reg Lungs: clear ant and both bases CT 07/07: atelectasis and some consolidation on R side; postop changes on L, including some fluid/air in upper thorax (likely +/- 200-300 cc total space) Path discussed w/ daughter A: s/p Left upper lobectomy, improving; hosp acquired pna (on IV Zosyn/Levaquin) P: cont IV abx; Dr. Carvalho to review CT (consideration for placement of another drainage tube); will order plain film for the a.m.; if no add'l tube needed, d/ c planning for home in 1-2 d.
--- NOTE | 2016-07-08 11:55 | PN ---
Subjective Date of Service: 07/08/16 Interval History: Patient seen and examined at bedside. Pt states that she is feeling well today. Denies fever, chills, shortness of breath, chest discomfort, N/V/D. Pt reports coughing up some white mucous. Family History: Unchanged from Admission Social History: Unchanged from Admission Past Medical History: Unchanged from Admission Objective Active Medications: Acetaminophen (Tylenol Tab*) 650 mg PO Q4H PRN Reason: Pain Or Temperature > 101 F Hydrocodone Bitart/Acetaminophen ([place] 5-325 Tab*) 1 tab PO Q4H PRN Reason: moderate pain Hydrocodone Bitart/Acetaminophen ([place] 5-325 Tab*) 2 tab PO Q4H PRN Reason: severe pain Alprazolam (Xanax Tab*) 0.25 mg PO Q6H PRN Reason: ANXIETY Cetirizine HCl (Zyrtec*) 10 mg PO DAILY KEVAN Reason: Protocol Citalopram Hydrobromide (Celexa Tab*) 20 mg PO DAILY KEVAN Docusate Sodium (Colace Cap*) 100 mg PO BID KEVAN Fluticasone Propionate (Flonase Nasal [place] 50mcg*) 1 spray BOTH NARES BID KEVAN Guaifenesin (Mucinex*) 1,200 mg PO BID KEVAN Heparin Sodium (Porcine) (Heparin Vial(*)) 5,000 units SUBCUT Q8HR KEVAN Hydromorphone HCl (Dilaudid Associate Art Director*) 20 mg in 20 mls @ 0 mls/hr [employer] MANAGER .Q24H KEVAN; Per Protocol Reason: Protocol Piperacillin Sod/Tazobactam Sod (Zosyn 3.375 Gm In Ns Premix*) 3.375 gm in 100 mls @ 25 mls/hr IVPB Q8H KEVAN Levofloxacin/Dextrose (Levaquin 500 Mg Ivpremix(*)) 500 mg in 100 mls @ 100 mls /hr IVPB 1730 KEVAN Ondansetron HCl (Zofran Inj*) 4 mg IV Q4H PRN Reason: NAUSEA/VOMITING Polyethylene Glycol/Electrolytes (Miralax*) 17 gm PO DAILY KEVAN Senna (Senokot Tab*) 1 tab PO BEDTIME PRN Reason: CONSTIPATION Vital Signs 07/07/16 07/07/16 07/07/16 13:00 13:25 13:30 Temperature 98 F Pulse Rate 92 Respiratory 20 18 Rate Blood Pressure 115/46 (mmHg) O2 Sat by Pulse 94 100 99 Oximetry 07/07/16 07/07/16 07/07/16 15:13 15:14 17:03 Temperature Pulse Rate 78 Respiratory 18 16 16 Rate Blood Pressure 124/48 (mmHg) O2 Sat by Pulse 97 97 96 Oximetry 07/07/16 07/07/16 07/07/16 19:20 19:51 19:57 Temperature 98.0 F Pulse Rate 91 Respiratory 12 20 18 Rate Blood Pressure 137/43 (mmHg) O2 Sat by Pulse 99 Oximetry 07/07/16 07/07/16 07/08/16 21:51 23:40 03:45 Temperature 98.1 F Pulse Rate 72 Respiratory 20 20 20 Rate Blood Pressure 117/43 (mmHg) O2 Sat by Pulse 97 Oximetry 07/08/16 07/08/16 07/08/16 04:01 05:45 07:35 Temperature 97.8 F 98.2 F Pulse Rate 78 67 Respiratory 22 18 18 Rate Blood Pressure 147/59 136/42 (mmHg) O2 Sat by Pulse 97 98 Oximetry 07/08/16 07/08/16 07/08/16 08:00 09:39 11:12 Temperature 97.3 F Pulse Rate 74 Respiratory 18 18 18 Rate Blood Pressure 144/44 (mmHg) O2 Sat by Pulse 100 100 Oximetry Oxygen Devices in Use Now: None Appearance: NAD, sitting up in bed. Eyes: No Scleral Icterus Ears/Nose/Mouth/Throat: Mucous Membranes Moist Respiratory: Symmetrical Chest Expansion and Respiratory Effort, Clear to Auscultation - anterior, few crackles in the right base Cardiovascular: NL Sounds; No Murmurs; No JVD, RRR Abdominal: NL Sounds; No Tenderness; No Distention Extremities: No Edema Skin: No Rash or Ulcers Neurological: Alert and Oriented x 3, NL Muscle Strength and Tone Lines/Tubes/Other Access: Clean, Dry and Intact Peripheral IV - site benign Nutrition: Taking PO's Result Diagrams: 07/08/16 06:16 07/08/16 06:16 Microbiology and Other Data: Microbiology 07/02/16 17:00 Nasal Screen MRSA (PCR)(SERENA) - Final Nasal Mrsa Negative Diagnostic Imaging: CXR - s/p SURESH lobectomy, chest tube in place. Small effusions. CXR 07/05 - increased L lung consolidation Chest CT 07/07 - Postsurgical change of recent L upper lobectomy, partial atelectasis L lower lober, near complete atelectasis of the R lower lobe Consolidation at the posterior segment of the R upper lobe concerning for pneumonia. Small bilateral dependent pleural effusions. Assess/Plan/Problems-Billing Assessment: Ms. Lauren is a 71 yo female with depression/anxiety who is now s/p left upper lobectomy by Dr Carvalho 07/02/16 for treatment of lung adenocarcinoma. Hospitalist has been asked to consult in this case. - Patient Problems (1) Acute postoperative respiratory insufficiency Code(s): J95.89 - OTH POSTPROC COMPLICATIONS AND DISORDERS OF RESP SYS, NEC SNOMED Code(s): 803655468 Comment: - CXR from 07/05 shows some increasing consolidation in the left lung mederos which may represent PNA v atelectasis - Labs demonstrate mod leukocytosis and increasing CRP, but neg procalcitonin - Remains afebrile - CT of the chest 07/07, consolidation at the posterior segment of the R upper lobe concerning for pneumonia. - Noted improvement in oxygenation today and lung sounds on auscultation - Continue chest therapy with flutter valve and IS - Continue Levaquin/Zosyn for HAP (2) Adenocarcinoma, lung Code(s): C34.90 - MALIGNANT NEOPLASM OF UNSP PART OF UNSP BRONCHUS OR LUNG SNOMED Code(s): 625162708 Comment: - s/p left upper lobectomy, POD #6 - Management per surgery team - Further treatment per oncology (3) Anxiety and depression Code(s): F41.9 - ANXIETY DISORDER, UNSPECIFIED; F32.9 - MAJOR DEPRESSIVE DISORDER, SINGLE EPISODE, UNSPECIFIED SNOMED Code(s): 651195455 Comment: - Stable - Continue Celexa and prn Xanax (4) DVT prophylaxis Code(s): SRJ6086 - SNOMED Code(s): 068981690 Comment: - SQ heparin per surgery (5) Full code status Code(s): Z78.9 - OTHER SPECIFIED HEALTH STATUS SNOMED Code(s): 898888160 Status and Disposition: Inpatient. Hospitalist group will continue to follow this patient with surgery.
[2016-07-08] MEDS: Levofloxacin 500 MG IVPREMIX(* 500 MG/100 ML BAG IVPB SCH (17:14)
[2016-07-08] MEDS: Hemorrhoidal OINT PR PRN ×2 (17:14→20:36)
[2016-07-09] MEDS: Piperac/Tazob 3.375 gm in NS* 3.375 GM/100 ML BAG IVPB SCH ×3 (04:34→20:26)
[2016-07-09] MEDS: HYDROcodone/ACETAMIN 5-325 MG* 1 TAB PO PRN ×3 (04:44→20:22)
[2016-07-09] MEDS: Heparin VIAL(*) 5000 UNITS/ML VIAL (FIVE THOUSAND) SUBCUT SCH ×3 (06:14→22:37)
--- NOTE | 2016-07-09 08:03 | RAD ---
HISTORY: Follow-up status post left upper lobectomy COMPARISONS: July 06, 2015 VIEWS: 2: Frontal dual-energy and lateral views of the chest. FINDINGS: CARDIOMEDIASTINAL SILHOUETTE: The cardiomediastinal silhouette is normal. JONI: There is post surgical change to the left hilum PLEURA: There is a moderate left hydropneumothorax consistent with the history of left upper lobectomy. There is a small right pleural effusion LUNG PARENCHYMA: The lungs are clear. ABDOMEN: The upper abdomen is clear. There is no subphrenic gas. BONES AND SOFT TISSUES: No bone or soft tissue abnormalities are noted. OTHER: There has been interval removal of the left-sided chest tube IMPRESSION: 1. THERE IS BEEN INTERVAL REMOVAL OF THE LEFT-SIDED CHEST TUBE. THERE IS A MODERATE-SIZED HYDROPNEUMOTHORAX ON THE LEFT IN THE LOBECTOMY CAVITY. 2. THERE IS A SMALL RIGHT PLEURAL EFFUSION.
[2016-07-09] MEDS: Fluticasone NASAL SPRAY 50MCG* 16 gm SPRAY BTL BOTH NARES SCH ×2 (08:54→20:25)
[2016-07-09] MEDS: Cetirizine* 10 MG TAB PO SCH (08:55)
[2016-07-09] MEDS: Docusate CAP* 100 MG PO SCH ×2 (08:55→20:23)
[2016-07-09] MEDS: guaiFENesin ER TAB 600 MG PO SCH ×2 (08:55→20:23)
[2016-07-09] MEDS: Citalopram TAB* 20 MG PO SCH (08:55)
[2016-07-09] MEDS: Senna TAB PO PRN (08:56)
[2016-07-09] MEDS: Polyethylene Glycol 3350* 17 GM PACKET PO SCH (09:11)
[2016-07-09] MEDS: Hemorrhoidal OINT PR PRN ×2 (12:28→20:50)
--- NOTE | 2016-07-09 14:19 | RAD ---
HISTORY: Status post left thoracentesis COMPARISONS: July 09, 2016 at 7:49 AM VIEWS:1: Single frontal portable view of the chest at 1:52 PM FINDINGS: LINES AND TUBES: None. CARDIOMEDIASTINAL SILHOUETTE: The cardiomediastinal silhouette is normal for portable technique. PLEURA: There is been interval reduction in the size of the left-sided hydropneumothorax, with trace left pleural effusion and a small residual left apical pneumothorax.. LUNG PARENCHYMA: The patient is status post left upper lobectomy. There is post surgical change to the left hilum. ABDOMEN: The upper abdomen is clear. There is no subphrenic gas. BONES AND SOFT TISSUES: No bone or soft tissue abnormalities are noted. IMPRESSION: TRACE LEFT PLEURAL EFFUSION AND SMALL RESIDUAL LEFT APICAL PNEUMOTHORAX.
--- NOTE | 2016-07-09 16:29 | PN ---
Subjective Date of Service: 07/09/16 Interval History: Patient seen and examined at bedside. Pt states that she is feeling well today. Denies fever, chills, shortness of breath, chest discomfort, N/V/D. Family History: Unchanged from Admission Social History: Unchanged from Admission Past Medical History: Unchanged from Admission Objective Active Medications: Acetaminophen (Tylenol Tab*) 650 mg PO Q4H PRN Reason: Pain Or Temperature > 101 F Hydrocodone Bitart/Acetaminophen ([place] 5-325 Tab*) 1 tab PO Q4H PRN Reason: moderate pain Hydrocodone Bitart/Acetaminophen ([place] 5-325 Tab*) 2 tab PO Q4H PRN Reason: severe pain Alprazolam (Xanax Tab*) 0.25 mg PO Q6H PRN Reason: ANXIETY Cetirizine HCl (Zyrtec*) 10 mg PO DAILY KEVAN Reason: Protocol Citalopram Hydrobromide (Celexa Tab*) 20 mg PO DAILY KEVAN Docusate Sodium (Colace Cap*) 100 mg PO BID KEVAN Fluticasone Propionate (Flonase Nasal [place] 50mcg*) 1 spray BOTH NARES BID KEVAN Guaifenesin (Mucinex*) 1,200 mg PO BID KEVAN Heparin Sodium (Porcine) (Heparin Vial(*)) 5,000 units SUBCUT Q8HR KEVAN Piperacillin Sod/Tazobactam Sod (Zosyn 3.375 Gm In Ns Premix*) 3.375 gm in 100 mls @ 25 mls/hr IVPB Q8H KEVAN Levofloxacin/Dextrose (Levaquin 500 Mg Ivpremix(*)) 500 mg in 100 mls @ 100 mls /hr IVPB 1730 KEVAN Ondansetron HCl (Zofran Inj*) 4 mg IV Q4H PRN Reason: NAUSEA/VOMITING Phenyleph/Shark Oil/Min Oil/Petrol (Preparation H*) 1 applic ID TID PRN Reason : PAIN Polyethylene Glycol/Electrolytes (Miralax*) 17 gm PO DAILY KEVAN Senna (Senokot Tab*) 1 tab PO BEDTIME PRN Reason: CONSTIPATION Vital Signs 07/08/16 07/08/16 07/08/16 18:07 19:52 20:00 Temperature 98.1 F Pulse Rate 80 Respiratory 18 15 16 Rate Blood Pressure 125/44 (mmHg) O2 Sat by Pulse 100 Oximetry 07/09/16 07/09/16 07/09/16 03:32 04:44 06:44 Temperature 98.2 F Pulse Rate 78 Respiratory 16 16 16 Rate Blood Pressure 137/49 (mmHg) O2 Sat by Pulse 99 Oximetry 07/09/16 07/09/16 07/09/16 07:22 07:51 09:02 Temperature 97.6 F Pulse Rate 87 Respiratory 16 18 Rate Blood Pressure 144/50 (mmHg) O2 Sat by Pulse 99 100 97 Oximetry 07/09/16 07/09/16 07/09/16 11:16 13:18 15:18 Temperature 97.9 F Pulse Rate 76 Respiratory 18 16 16 Rate Blood Pressure 130/46 (mmHg) O2 Sat by Pulse 99 Oximetry 07/09/16 15:38 Temperature 97.9 F Pulse Rate 69 Respiratory 21 Rate Blood Pressure 121/45 (mmHg) O2 Sat by Pulse 94 Oximetry Oxygen Devices in Use Now: None Appearance: NAD, sitting up in bed Respiratory: Symmetrical Chest Expansion and Respiratory Effort, Clear to Auscultation Cardiovascular: NL Sounds; No Murmurs; No JVD, RRR Abdominal: NL Sounds; No Tenderness; No Distention Extremities: No Edema Skin: No Rash or Ulcers Neurological: Alert and Oriented x 3, NL Muscle Strength and Tone Lines/Tubes/Other Access: Clean, Dry and Intact Peripheral IV - site benign Nutrition: Taking PO's Result Diagrams: 07/08/16 06:16 07/08/16 06:16 Microbiology and Other Data: Microbiology 07/02/16 17:00 Nasal Screen MRSA (PCR)(SERENA) - Final Nasal Mrsa Negative Diagnostic Imaging: CXR - s/p SURESH lobectomy, chest tube in place. Small effusions. CXR 07/05 - increased L lung consolidation Chest CT 07/07 - Postsurgical change of recent L upper lobectomy, partial atelectasis L lower lober, near complete atelectasis of the R lower lobe Consolidation at the posterior segment of the R upper lobe concerning for pneumonia. Small bilateral dependent pleural effusions. CXR 07/09 - Moderate sized hydropneumothorax left lobectomy cavity and small right pleural effusion. Assess/Plan/Problems-Billing Assessment: Ms. Lauren is a 71 yo female with depression/anxiety who is now s/p left upper lobectomy by Dr Carvalho 07/02/16 for treatment of lung adenocarcinoma. Hospitalist has been asked to consult in this case. - Patient Problems (1) Acute postoperative respiratory insufficiency Code(s): J95.89 - OTH POSTPROC COMPLICATIONS AND DISORDERS OF RESP SYS, NEC SNOMED Code(s): 554794830 Comment: - CXR from 07/05 shows some increasing consolidation in the left lung mederos which may represent PNA v atelectasis - Labs demonstrate resolved leukocytosis and increasing CRP, but negative procalcitonin - Remains afebrile - CT of the chest 07/07, consolidation at the posterior segment of the R upper lobe concerning for pneumonia. - Noted improvement in oxygenation today and lung sounds on auscultation - Continue chest therapy with flutter valve and IS - Continue Levaquin/Zosyn for HAP, recommend discharge home on Levaquin to complete a 7 day total course (2) Adenocarcinoma, lung Code(s): C34.90 - MALIGNANT NEOPLASM OF UNSP PART OF UNSP BRONCHUS OR LUNG SNOMED Code(s): 567667205 Comment: - s/p left upper lobectomy, POD #7 - Management per surgery team - Further treatment per oncology (3) Anxiety and depression Code(s): F41.9 - ANXIETY DISORDER, UNSPECIFIED; F32.9 - MAJOR DEPRESSIVE DISORDER, SINGLE EPISODE, UNSPECIFIED SNOMED Code(s): 432150874 Comment: - Stable - Continue Celexa and prn Xanax (4) DVT prophylaxis Code(s): KIS3898 - SNOMED Code(s): 974131706 Comment: - SQ heparin per surgery (5) Full code status Code(s): Z78.9 - OTHER SPECIFIED HEALTH STATUS SNOMED Code(s): 908614348 Status and Disposition: Inpatient. Hospitalist group will continue to follow this patient with surgery.
[2016-07-09] MEDS: Levofloxacin 500 MG IVPREMIX(* 500 MG/100 ML BAG IVPB SCH (17:42)
[2016-07-10] MEDS: Piperac/Tazob 3.375 gm in NS* 3.375 GM/100 ML BAG IVPB SCH (05:12)
[2016-07-10] MEDS: Heparin VIAL(*) 5000 UNITS/ML VIAL (FIVE THOUSAND) SUBCUT SCH (05:24)
--- NOTE | 2016-07-10 08:01 | RAD ---
INDICATION: Left-sided thoracotomy. Left-sided paracentesis COMPARISON: July 09, 2016 TECHNIQUE: PA and lateral dual-energy views were obtained. FINDINGS: Bones/Soft Tissues: There are no acute bony findings. There is recent left-sided thoracotomy. Cardiomediastinal: Mild mediastinal shift to left. Normal heart size.. Lungs: Mild infiltrative change medial right lung base. Pleural and parenchymal changes left chest with a small hydropneumothorax. Pleura: Left-sided pleural fluid is noted above. . There is less pleural fluid Other: None IMPRESSION: LEFT THORACOTOMY. SMALL LEFT-SIDED HYDROPNEUMOTHORAX. MILD IMPROVED AERATION LEFT LUNG BASE WITH DECREASED PLEURAL FLUID.
[2016-07-10 08:10] VITALS: BP 138/51
[2016-07-10] MEDS: Citalopram TAB* 20 MG PO SCH (08:11)
[2016-07-10] MEDS: ALPRAZolam TAB* 0.25 MG PO PRN (08:11)
[2016-07-10] MEDS: Fluticasone NASAL SPRAY 50MCG* 16 gm SPRAY BTL BOTH NARES SCH (08:12)
[2016-07-10] MEDS: Polyethylene Glycol 3350* 17 GM PACKET PO SCH (08:13)
[2016-07-10] MEDS: guaiFENesin ER TAB 600 MG PO SCH (08:13)
[2016-07-10] MEDS: Cetirizine* 10 MG TAB PO SCH (08:13)
[2016-07-10] MEDS: Docusate CAP* 100 MG PO SCH (08:13)
--- NOTE | 2016-07-10 08:54 | PRO ---
DATE OF PROCEDURE: 07/09/16 - ROOM #338 DATE OF : 41 SURGEON: Sukhi Carvalho MD PRE-OP DIAGNOSIS: POST-OP DIAGNOSIS: PROCEDURE: Left thoracentesis. INDICATIONS: The patient is a 71-year-old female who is status post upper lobectomy a week ago who has an anterior hydropneumothorax in the region of the previous upper lobe. She has had some dyspnea and collapse of the right lower lobe and slight mediastinal shift, and there was a question or concern about whether this left-sided collection was under pressure. Therefore, it was felt that left thoracentesis would be carried out. DESCRIPTION OF PROCEDURE: Therefore, the area was prepped with Betadine, draped in a sterile fashion. Local infiltrate of anesthesia was administered over the third rib and the anterior space above this was entered. Air and some clear fluid was forthcoming, and this was hooked to the suction bottle. Only about 50 mL of fluid and some air was carried out, and then the tube was withdrawn and a bandage was placed. She tolerated this with a little bit of shoulder pain, a little bit of nausea; but, after 5 or 10 minutes, she was back to baseline and feeling well. Chest x-ray will be obtained. There were no specimens. [id number]/CPS #: [id number] MTDD
--- NOTE | 2016-07-10 09:06 | PN ---
Progress Note - Progress Note Note: Surgery Progress: (seen w/ Dr. Carvalho) S: doing well; pain controlled; ambulating well w/ good sats off O2; irvin diet O: Vital Signs - 8 hr 07/10/16 07/10/16 07/10/16 03:31 08:06 08:11 Temperature 97.9 F 98.1 F Pulse Rate 78 70 Respiratory 20 18 18 Rate Blood Pressure 130/50 138/51 (mmHg) O2 Sat by Pulse 99 98 Oximetry 07/10/16 08:40 Temperature Pulse Rate Respiratory Rate Blood Pressure (mmHg) O2 Sat by Pulse 98 Oximetry Intake and Output Last 24 Hours 07/08/16 07/09/16 07/10/16 07/11/16 06:59 06:59 06:59 06:59 Intake Total 1129 1714 1571 Output Total 1425 1400 1100 Balance -296 314 471 Intake: IV Fluids 118 226 43 ABX - ZOSYN 207 NS 118 19 43 IVPB 81 88 433 ABX - LEVOFLOXACIN 110 ABX - ZOSYN 81 56 323 NS 32 Oral 930 1400 1095 Output: Urine 1425 1400 1100 Other: Estimated Void Medium Medium Estimated Stool Amount Medium Large # Voids 1 Heart: (per Dr. Carvalho) reg Lungs: (per Dr. Carvalho) fairly clear on L side; incision healing well; katlyn d /c'd; steris placed; CT drsg changed cXray: smaller L apical air/fluid level (post-thoracentesis 07/09) A: s/p Left thoracotomy, upper lobectomy for carcinoma, doing well. Hosp acquired pna (Right), doing well on abx P: home today on Levaquin; office f/u 1 wk
--- NOTE | 2016-07-10 09:20 | PN ---
Subjective Date of Service: 07/10/16 Interval History: Patient seen and examined at bedside. Pt states that she is feeling well this morning. Denies fever, chills, shortness of breath, chest discomfort, N/V/D. Pt is anxious to get home later today. Family History: Unchanged from Admission Social History: Unchanged from Admission Past Medical History: Unchanged from Admission Objective Active Medications: Acetaminophen (Tylenol Tab*) 650 mg PO Q4H PRN Reason: Pain Or Temperature > 101 F Hydrocodone Bitart/Acetaminophen ([place] 5-325 Tab*) 1 tab PO Q4H PRN Reason: moderate pain Hydrocodone Bitart/Acetaminophen ([place] 5-325 Tab*) 2 tab PO Q4H PRN Reason: severe pain Alprazolam (Xanax Tab*) 0.25 mg PO Q6H PRN Reason: ANXIETY Cetirizine HCl (Zyrtec*) 10 mg PO DAILY KEVAN Reason: Protocol Citalopram Hydrobromide (Celexa Tab*) 20 mg PO DAILY KEVAN Docusate Sodium (Colace Cap*) 100 mg PO BID KEVAN Fluticasone Propionate (Flonase Nasal [place] 50mcg*) 1 spray BOTH NARES BID KEVAN Guaifenesin (Mucinex*) 1,200 mg PO BID KEVAN Heparin Sodium (Porcine) (Heparin Vial(*)) 5,000 units SUBCUT Q8HR KEVAN Piperacillin Sod/Tazobactam Sod (Zosyn 3.375 Gm In Ns Premix*) 3.375 gm in 100 mls @ 25 mls/hr IVPB Q8H KEVAN Levofloxacin/Dextrose (Levaquin 500 Mg Ivpremix(*)) 500 mg in 100 mls @ 100 mls /hr IVPB 1730 KEVAN Ondansetron HCl (Zofran Inj*) 4 mg IV Q4H PRN Reason: NAUSEA/VOMITING Phenyleph/Shark Oil/Min Oil/Petrol (Preparation H*) 1 applic MT TID PRN Reason : PAIN Polyethylene Glycol/Electrolytes (Miralax*) 17 gm PO DAILY KEVAN Senna (Senokot Tab*) 1 tab PO BEDTIME PRN Reason: CONSTIPATION Vital Signs 07/09/16 07/09/16 07/09/16 11:16 13:18 15:18 Temperature 97.9 F Pulse Rate 76 Respiratory 18 16 16 Rate Blood Pressure 130/46 (mmHg) O2 Sat by Pulse 99 Oximetry 07/09/16 07/09/16 07/09/16 15:38 19:36 20:22 Temperature 97.9 F 98.4 F Pulse Rate 69 80 Respiratory 21 18 18 Rate Blood Pressure 121/45 127/46 (mmHg) O2 Sat by Pulse 94 99 Oximetry 07/09/16 07/09/16 07/10/16 20:54 22:22 00:13 Temperature 97.8 F Pulse Rate 80 Respiratory 18 18 20 Rate Blood Pressure 141/54 (mmHg) O2 Sat by Pulse 97 Oximetry 07/10/16 07/10/16 07/10/16 03:31 08:06 08:11 Temperature 97.9 F 98.1 F Pulse Rate 78 70 Respiratory 20 18 18 Rate Blood Pressure 130/50 138/51 (mmHg) O2 Sat by Pulse 99 98 Oximetry 07/10/16 08:40 Temperature Pulse Rate Respiratory Rate Blood Pressure (mmHg) O2 Sat by Pulse 98 Oximetry Oxygen Devices in Use Now: None Appearance: NAD, sitting up in a chair Respiratory: Symmetrical Chest Expansion and Respiratory Effort, Clear to Auscultation Cardiovascular: NL Sounds; No Murmurs; No JVD, RRR Abdominal: NL Sounds; No Tenderness; No Distention Extremities: No Edema Neurological: Alert and Oriented x 3, NL Muscle Strength and Tone Lines/Tubes/Other Access: Clean, Dry and Intact Peripheral IV - site benign Nutrition: Taking PO's Result Diagrams: 07/08/16 06:16 07/08/16 06:16 Microbiology and Other Data: Microbiology 07/02/16 17:00 Nasal Screen MRSA (PCR)(SERENA) - Final Nasal Mrsa Negative Diagnostic Imaging: CXR - s/p SURESH lobectomy, chest tube in place. Small effusions. CXR 07/05 - increased L lung consolidation Chest CT 07/07 - Postsurgical change of recent L upper lobectomy, partial atelectasis L lower lober, near complete atelectasis of the R lower lobe Consolidation at the posterior segment of the R upper lobe concerning for pneumonia. Small bilateral dependent pleural effusions. CXR 07/09 - Moderate sized hydropneumothorax left lobectomy cavity and small right pleural effusion. CXR 07/10 - Left thoracotomy. Small left sided hydropneumonthorax mild improved aeration left lung base with decreased pleural fluid. Assess/Plan/Problems-Billing Assessment: Ms. Lauren is a 71 yo female with depression/anxiety who is now s/p left upper lobectomy by Dr Carvalho 07/02/16 for treatment of lung adenocarcinoma. Hospitalist has been asked to consult in this case. - Patient Problems (1) Acute postoperative respiratory insufficiency Code(s): J95.89 - OTH POSTPROC COMPLICATIONS AND DISORDERS OF RESP SYS, NEC SNOMED Code(s): 662703212 Comment: - CXR from 07/05 shows some increasing consolidation in the left lung mederos which may represent PNA v atelectasis - Labs demonstrate resolved leukocytosis and increasing CRP, but negative procalcitonin - Remains afebrile - CT of the chest 07/07, consolidation at the posterior segment of the R upper lobe concerning for pneumonia. - Noted improvement in oxygenation today and lung sounds on auscultation - Continue chest therapy with flutter valve and IS - Recommend discharge home on Levaquin to complete a 7 day total course (2) Adenocarcinoma, lung Code(s): C34.90 - MALIGNANT NEOPLASM OF UNSP PART OF UNSP BRONCHUS OR LUNG SNOMED Code(s): 536844136 Comment: - s/p left upper lobectomy, POD #8 - Management per surgery team - Further treatment per oncology (3) Anxiety and depression Code(s): F41.9 - ANXIETY DISORDER, UNSPECIFIED; F32.9 - MAJOR DEPRESSIVE DISORDER, SINGLE EPISODE, UNSPECIFIED SNOMED Code(s): 250821978 Comment: - Stable - Continue Celexa and prn Xanax (4) DVT prophylaxis Code(s): QYA7825 - SNOMED Code(s): 313002284 Comment: - SQ heparin per surgery (5) Full code status Code(s): Z78.9 - OTHER SPECIFIED HEALTH STATUS SNOMED Code(s): 590229882 Status and Disposition: Inpatient. Hospitalist group will continue to follow this patient with surgery. Plan for discharge to home later today.
[2016-07-10] MEDS: HYDROcodone/ACETAMIN 5-325 MG* 1 TAB PO PRN (10:29)
--- NOTE | 2016-07-10 13:00 | DS ---
CC: Dr. Dre Sahu, [facility]; Dr. Dayron Padilla. DISCHARGE SUMMARY: DATE OF ADMISSION: 07/02/16 DATE OF DISCHARGE: 07/10/16 ATTENDING SURGEON: Dr. Sukhi Carvalho. HOSPITAL COURSE: Please refer to admission history and physical for admission details. The patient was taken to the operating room on 07/02/16 where she underwent left thoracotomy with left upper lo bectomy. The tumor was adherent to the chest wall. The pathology did show pleural involvement. Al l 12 lymph nodes were negative for metastatic disease (see separate report). The patient had initia lly a difficult course with pain control, anxiety and shortness of breath. This improved gradually. She did have low-grade fever at one point and was found by CT on 07/07/16 to have right upper lobe infiltrate as well as atelectasis of the entire right lower lobe. She also had postoperative change s including relatively large fluid, air and fluid collection in the apex of the left thorax. This w as subsequent to chest tube removal on same day 07/07/16. Plain film the morning of 07/09/16 contin ued to show moderate size air fluid level on left and therefore Dr. Carvalho performed thoracentesis a t bedside with improvement in her subsequent film on 07/10/16. Clinically, she is improved signific antly in the past 3 days with improvement in pain and oxygen saturation such that she is saturating at 98% to 99% on room air as of the morning of discharge. She is ambulating well. PHYSICAL EXAMINATION: As of the morning of discharge, temperature 98.1, blood pressure 138/51, puls e 70, respirations 18, and room air saturation 98%. The patient was seen and examined with Dr. Missy ferrell. In general appears well and in no acute distress. Left chest incision healing well. Padmini r emoved and Steri- Strips placed. Chest tube dressing was also changed. Breath sounds relatively cl ear on the operative side. Heart regular rhythm (per Dr. Carvalho's exam). IMPRESSION: Status post left upper lobectomy for carcinoma, doing well, ready for discharge. PLAN: Discharge home and to complete 3 additional days, for a total of 7, of Levaquin. She has a followu p in our office on 07/17/[address] Carvalho. She will also contact Dr. Padilla's and Dr. Whitney's of [facility] for oncology and medical follow up respectively. TOMMY FIGUEROA [id number]/[facility] #: [id number]
== END 2016-07-10 10:40 | disposition home or self-care (01) | DRG 163 ==
LOC: AA 07:33 → ICU 12:46 → SSU 07-04 07:24
PROVIDERS: ADMIT Surgery; ATTEND Surgery
PROC: 0BBG0ZZ Excision of Left Upper Lung Lobe, Open Approach (ICD-10-PCS; 2016-07-02)
PROC: 07B70ZX Excision of Thorax Lymphatic, Open Approach, Diagnostic (ICD-10-PCS; 2016-07-02)
PROC: 0BPLX0Z Removal of Drainage Device from Left Lung, External Approach (ICD-10-PCS; principal; 2016-07-09)
PROC: 0W9B3ZZ Drainage of Left Pleural Cavity, Percutaneous Approach (ICD-10-PCS; 2016-07-09)
DX: C34.12 Malignant neoplasm of upper lobe, left bronchus or lung (principal); J18.9 Pneumonia, unspecified organism; C38.4 Malignant neoplasm of pleura; C78.2 Secondary malignant neoplasm of pleura; J94.8 Other specified pleural conditions; D72.829 Elevated white blood cell count, unspecified; J95.89 Other postprocedural complications and disorders of respiratory system, not elsewhere classified; J98.11 Atelectasis; F41.9 Anxiety disorder, unspecified; F32.9 Major depressive disorder, single episode, unspecified; F17.210 Nicotine dependence, cigarettes, uncomplicated; R41.0 Disorientation, unspecified; H53.8 Other visual disturbances; R06.02 Shortness of breath; R09.02 Hypoxemia; Y95 Nosocomial condition; Z80.1 Family history of malignant neoplasm of trachea, bronchus and lung; Z87.442 Personal history of urinary calculi
CPT/HCPCS: 36415; 71010; 71020; 71250; 80048; 84145; 85025; 85027; 86140; 86850; 86870; 86900; 86901; 86922; 87070; 87205; 87641; 88307; 88309; 88341; 88342; 94760; 99232; A9270-GY; C1776; J0690; J1100; J1170; J1240; J1644; J1885; J1956; J2250; J2270; J2300; J2405; J2543; J2704; J2795; J3010

== ENCOUNTER 2016-08-06 08:19 | Day surgery (SDC) | payer MEDICARE ==
[~2016-08-06 08:19] MED LIST changes: +Buffered Lidocaine 1% SYR 3ML* 3 ML/SYR SYRINGE INTRADERM ONE; -Buffered Lidocaine 1% SYRIN* 3 ML/SYR SYRINGE INTRADERM ONE; -Famotidine IV* 10 MG/ML 2 ML (20 mg) IV ONE; -Famotidine IV* 10 MG/ML 2 ML (20 mg) ONE; -HYDROcodone/ACETAMIN 5-325 MG* 1 TAB PO PRN; -Heparin VIAL(*) 5000 UNITS/ML VIAL (FIVE THOUSAND) ONE; -PROCHLORPERAZINE INJ 5 MG/ML 2 ML VIAL IV PRN; -ceFAZolin 2 GM PREMIX(*) 2 GM/50 ML BAG IVPB ONE; -fentaNYL* 50 MCG/ML 2 ML VIAL (100 MCG VIAL) IV PRN
[2016-08-06] MEDS ORDERED: ceFAZolin 2 GM PREMIX(*) 2 GM/50 ML BAG IVPB ONE (08:28)
[2016-08-06] MEDS ORDERED: Lidocaine 1% INJ* 10 MG/ML 30 ML SDV ONE (09:17)
[2016-08-06] MEDS ORDERED: Midazolam* 1 MG/ML 5 ML VIAL (5 MG) ONE ×2 (09:50→10:07)
[2016-08-06] MEDS ORDERED: fentaNYL* 50 MCG/ML 2 ML VIAL (100 MCG VIAL) ONE ×2 (09:58→10:07)
[2016-08-06] MEDS ORDERED: HYDROcodone/ACETAMIN 5-325 MG* 1 TAB PO PRN (10:15)
[2016-08-06] MEDS ORDERED: HYDROmorphone* 1 MG/ML 1 ML SYR IV PRN (10:15)
[2016-08-06] MEDS ORDERED: DiMENhydriNATE IV* 50 MG/ML VIAL IV PUSH PRN (10:15)
[2016-08-06] MEDS ORDERED: fentaNYL* 50 MCG/ML 2 ML VIAL (100 MCG VIAL) IV PRN (10:15)
[2016-08-06] MEDS ORDERED: Ondansetron INJ* 2 MG/ML VIAL IV PRN (10:15)
[2016-08-06] MEDS ORDERED: HYDROcodone/ACETAMIN 5-325 MG* 1 TAB ONE (10:48)
--- NOTE | 2016-08-06 11:05 | RAD ---
HISTORY: Postop port placement COMPARISONS: July 17, 2016 VIEWS:1: Single frontal portable view of the chest at 10:50 AM FINDINGS: LINES AND TUBES: There is a right-sided chest port from a subclavian approach with the tip overlying the superior vena cava CARDIOMEDIASTINAL SILHOUETTE: The cardiomediastinal silhouette is normal for portable technique. PLEURA: Again noted is a loculated left pleural effusion. There is no appreciable pneumothorax LUNG PARENCHYMA: There is postsurgical change to the left hilum ABDOMEN: The upper abdomen is clear. There is no subphrenic gas. BONES AND SOFT TISSUES: No bone or soft tissue abnormalities are noted. IMPRESSION: STATUS POST RIGHT CHEST PORT PLACEMENT
[2016-08-06 11:38] VITALS: BP 118/50
--- NOTE | 2016-08-06 12:26 | RAD ---
INDICATION: chest port placement COMPARISONS: None relevant TECHNIQUE: Fluoroscopy was provided for a vascular access procedure. Total fluoroscopy time is: 7.1 seconds FINDINGS: Spot images of the straight a chest port with the tip overlying the atrial junction IMPRESSION: FLUOROSCOPY WAS PROVIDED FOR A VASCULAR ACCESS PROCEDURE CPT II Codes: 6045F
--- NOTE | 2016-08-06 14:18 | OP ---
CC: Sukhi Carvalho MD; Dayron Padilla MD OPERATIVE REPORT: DATE OF OPERATION: 08/06/16 DATE OF : 41 SURGEON: Sukhi Carvalho MD. GROUP SALES MANAGER: None. ANESTHESIOLOGIST: Rigoberto Mai MD ANESTHESIA: LMAC. PRE-OP DIAGNOSIS: Carcinoma of the lung. POST-OP DIAGNOSIS: Carcinoma of the lung. OPERATIVE PROCEDURE: Placement of right subclavian 8 [place] [employer]. DESCRIPTION OF PROCEDURE: The patient was supine on the operating table. After adequate intravenou s sedation, compression stockings, Tanika Hugger warmer and intravenous antibiotics; the right chest a nd neck prepped with antiseptic and draped in sterile fashion. Local infiltrative anesthesia was ad ministered and approximately 3 cm of subclavian incision was created. Inferior pocket was created. Subclavian was cannulated with a needle and guidewire passed without difficulty. Catheter passed t o the peel-away introducer, measured and cut to 23 cm and attached to the port, which was sutured in the pocket with 2-0 Prolene. Pocket was closed with 3-0 and 5-0 Polysorb, followed by Steri-Strips . The port has good blood return and flushed with saline solution and heparinized solution. She to lerated the procedure well, was awakened and brought to Recovery in good condition. No complication s. No drains. No pathologic specimens. Sponge, instrument count correct. Estimated blood loss 5 mL. [id number]/[facility] #: [id number]
== END 2016-08-06 11:35 | disposition home or self-care (01) ==
LOC: OR 08:19
PROVIDERS: ATTEND Surgery
DX: C34.90 Malignant neoplasm of unspecified part of unspecified bronchus or lung (principal); Z87.891 Personal history of nicotine dependence
CPT/HCPCS: 71010; 76000; C1788; J0690; J1642; J2001; J2250; J3010

== ENCOUNTER 2018-07-13 07:18 | Emergency (ER) | payer MEDICARE ==
[2018-07-13] MEDS ORDERED: traMADol TAB* 50 MG PO ONE (07:56)
[2018-07-13 08:00] LABS: ABS Basophils 0.1 10^3/ul (0-0.2); ABS Eosinophils 0.1 10^3/ul (0-0.6); ABS Lymphocytes 1.5 10^3/ul (1.0-4.8); ABS Monocytes 0.4 10^3/ul (0-0.8); ABS Neutrophils 6.2 10^3/ul (1.5-7.7); ABS Nucleated RBC 0 10^3/ul; Eosinophil % 1.7 %; Hematocrit 43 % (33-41); Hemoglobin 14.2 g/dL (12.0-16.0); Lymphocyte % 18.2 %; Mean Corpuscular HGB Conc 33 g/dL (31-36); Mean Corpuscular Hemoglobin 27 pg (27-31); Mean Corpuscular Volume 83 fL (80-97); Mean Platelet Volume 7.6 fL (7.4-10.4); Nucleated Red Blood Cells % 0; Platelet Count 264 10^3/uL (150-450); Red Blood Count 5.21 10^6 /uL (3.70-4.87); Red Cell Distribution Width 15 % (10.5-15); White Blood Count 8.4 10^3/uL (3.5-10.8)
--- NOTE | 2018-07-13 08:01 | ED ---
Lower Extremity - HPI Summary HPI Summary: 73 year old female presents to the emergency department for evaluation of pain on her bilateral posterior legs. This problem has been present for 2 days and is constant. Pt describes the pain as "achy and sometimes crampy" and states is is worse when she lies down and with movement. Pt took [place] 5/325 last night and Ativan this morning which did not help her symptoms. Pt also states she is nauseous. She denies vomiting, fever, chills, tingling, decreased ROM, and numbness. She states the pain runs from her upper thighs to her ankles on both posterior legs. Pt had chemotherapy for lung cancer and ended her treatments in September 2016. She states her feet have been numbed ever since then. shortness of breath is at baseline. no chest pain. denies any back pain, loss of bowel or bladder or saddle anasethesia. no urinary symptoms. - History of Current Complaint Chief Complaint: EDExtremityLower Stated Complaint: SEVERE LEG PAIN PER PT Time Seen by Provider: 07/13/18 07:27 Hx Obtained From: Patient Onset/Duration: Days Pain Intensity: 8 - Allergies/Home Medications Allergies/Adverse Reactions: Allergies Allergy/AdvReac Type Severity Reaction Status Date / Time No Known Allergies Allergy Verified 07/13/18 07:26 PMH/Surg Hx/FS Hx/Imm Hx Endocrine/Hematology History: Denies: Hx Diabetes Cardiovascular History: Denies: Hx Hypertension Respiratory History: Reports: Other Respiratory Problems/Disorders - recently quit smoking, lung cancer History: Reports: Hx Kidney Stones - RT STENT 06/28/16 Denies: Hx Renal Disease Sensory History: Reports: Hx Contacts or Glasses, Hx Hearing Problem Denies: Hx Hearing Aid Opthamlomology History: Reports: Hx Contacts or Glasses Psychiatric History: Reports: Hx Anxiety - on meds, Hx Depression - Cancer History Cancer Type, Location and Year: LUNG Hx Chemotherapy: Yes - Surgical History Surgery Procedure, Year, and Place: x1 1964. appendectomy 1964. power port insertion 07/2016 Hx Anesthesia Reactions: No - Immunization History Date of Tetanus Vaccine: unknown Date of Influenza Vaccine: unknown Infectious Disease History: No Infectious Disease History: Denies: Traveled Outside the [place] in Last 30 Days - Family History Known Family History: Positive: Other - Lung CA - Social History Alcohol Use: None Hx Substance Use: No Substance Use Type: Reports: None Hx Tobacco Use: Yes Smoking Status (MU): Former Smoker Amount Used/How Often: 8-9 ciggarettes Review of Systems Constitutional: Negative Negative: Fever, Chills, Fatigue Eyes: Negative Negative: Palpitations, Chest Pain Positive: Shortness Of Breath - unchanged from baseline Positive: Myalgia - legs. Negative: Edema All Other Systems Reviewed And Are Negative: Yes Physical Exam Triage Information Reviewed: Yes Vital Signs On Initial Exam: Initial Vitals Temp Pulse Resp BP Pulse Ox 96.1 F 81 17 114/83 98 07/13/18 07:20 07/13/18 07:20 07/13/18 07:20 07/13/18 07:20 07/13/18 07:20 Vital Signs Reviewed: Yes Appearance: Positive: Well-Appearing Skin: Positive: Warm, Dry Head/Face: Positive: Normal Head/Face Inspection Eyes: Positive: Normal, Conjunctiva Clear ENT: Positive: Pharynx normal Respiratory/Lung Sounds: Positive: Clear to Auscultation, Breath Sounds Present Cardiovascular: Positive: Normal, RRR Musculoskeletal: Positive: Strength/ROM Intact - lower extremities, Other - good pulses, sensation grossly intact. Negative: Edema Left, Edema Right Neurological: Positive: Reflexes Intact - patella, Normal Gait Psychiatric: Positive: Normal Diagnostics - Vital Signs Vital Signs Temp Pulse Resp BP Pulse Ox 07/13/18 07:20 96.1 F 81 17 114/83 98 - Laboratory Result Diagrams: 07/13/18 07:51 07/13/18 07:51 Lab Statement: Any lab studies that have been ordered have been reviewed, and results considered in the medical decision making process. Re-Evaluation - Re-Evaluation First Eval Re-Evaluation Time: 09:25 Change: Improved - feels better and would like to go home Lower Extremity Course/Dx - Course Course Of Treatment: 73-year-old female presents with bilateral leg pain for the past 2 days. She states the symptoms started at night. She states that she has no pain during the day. Doesn't change when she walks. Still able to ambulate. She has a sharp pain in her entire leg. She has numbness of the feet at baseline is unchanged. No new numbness or tingling. No back pain. No fevers. never had this before. On exam has a normal neuro exam. Good strength in lower extremities. No edema noted. Pain is pressure-like in both legs. wbc normal. patient is not anemic. electrolytes normal. will try gabapentin for pain as could be restless leg. told follow up with primary. patient understand and agrees with plan. - Diagnoses Differential Diagnosis/HQI/PQRI: Positive: Sciatica, Sprain, Other - restless leg, PVD Provider Diagnoses: Bilateral leg pain Discharge - Sign-Out/Discharge Documenting (check all that apply): Patient Departure Patient Received Moderate/Deep Sedation with Procedure: No - Discharge Plan Condition: Good Disposition: HOME Prescriptions: Gabapentin CAP(*) [Neurontin 100 mg CAP(*)] 100 mg PO DAILY #7 cap Patient Education Materials: Leg Pain (ED) Referrals: Dayron Padilla MD [Primary Care Provider] - Additional Instructions: follow up with primary within 5 days use gabapentin at night two hours before bed Take tyenlol as needed for pain every 6 hours Return to ED if develop any new or worsening symptoms - Billing Disposition and Condition Condition: GOOD Disposition: Home - Attestation Statements Provider Attestation: I was available for consult. This patient was seen by the ABELARDO. The patient was not presented to, seen by, or examined by me. -Luis
[2018-07-13 08:20] LABS: Albumin 4.2 g/dL (3.2-5.2); Albumin/Globulin Ratio 1.5 (1-3); BUN/Creatinine Ratio 17.2 (8-20); C Reactive Protein 10.67 mg/L (<8.01); Calcium 9.3 mg/dL (8.6-10.3); EGFR African American 66.2 (>60); EGFR Non-African American 54.7 (>60); Globulin 2.8 g/dL (2-4); Magnesium 2.1 mg/dL (1.9-2.7); Total Bilirubin 0.4 mg/dL (0.2-1.0)
[2018-07-13 09:18] LABS: TSH (Thyroid Stimulating Horm) 5.46 mcIU/mL (0.34-5.60)
[2018-07-13 09:23] LABS: Ferritin 54.1 ng/mL (11-307)
[2018-07-13 09:44] VITALS: BP 0/0
== END 2018-07-13 09:43 | disposition home or self-care (01) ==
LOC: ED 07:18
DX: M79.662 Pain in left lower leg (principal); M79.661 Pain in right lower leg; Z87.891 Personal history of nicotine dependence
CPT/HCPCS: 36415; 80053; 82728; 83735; 84443; 85025; 86140; 99282; A9270-GY